=== PATIENT | female | born 1970 | race Caucasian/White ===

== ENCOUNTER 2019-09-21 15:28 | Outpatient (CLI) | payer OTHER, SELFPAY ==
--- NOTE | ~2019-09-21 | XR_ITS ---
EXAMINATION: XR lumbar spine 2-3V DATE: 09/21/2019 16:13 INDICATION: Dorsalgia. Low back pain radiating down the legs. TECHNIQUE: Anteroposterior and lateral views of the lumbar spine, and cone-down lateral view of the l umbosacral junction were obtained. COMPARISON: None. FINDINGS: Alignment is normal. Vertebral body heights are normal. Mild disc height loss at L2-L3, L5-S1 and to lesser degree at L3-L4 and L4-L5. Mild to moderate lower lumbar predominant facet osteoarthritis. Sac ral arches are intact. Bilateral osteitis condense and celiac, left greater than right. Normal bowel gas pattern. IMPRESSION: 1. Mild lumbar spondylosis. Reviewed, dictated and finalized at location A. DENTIAL SUBCONTRACTOR IMPRESSION: 1. Mild lumbar spondylosis.
[2019-09-21 16:47] LABS: Magnesium 1.9 mg/dL (1.6-2.3)
== END 2019-09-21 15:29 | disposition home or self-care (01) ==
PROVIDERS: PCP Family Medicine; Visit Provider Nurse Practitioner Family
DX: M79.18 Myalgia, other site (principal); M47.896 Other spondylosis, lumbar region
CPT/HCPCS: 36415; 72100; 82607; 83735

== ENCOUNTER 2021-04-16 08:55 | Emergency (ER) | payer OTHER, SELFPAY ==
[2021-04-16 08:55] VITALS: BP 129/47; PULSE 71; RESP 14; TEMP 36.2; O2SAT 98
--- NOTE | 2021-04-16 09:09 | ED.GENADULT ---
HPI - General Adult General Chief complaint: Back Pain/Injury Stated complaint: back pain Time Seen by Provider: 04/16/21 09:05 History of Present Illness HPI narrative: Patient is a pleasant 50-year-old female who comes into the ED today complaining of low back pain. Patient reports that she went to an camping over the weekend and slept on an air mattress and she believes this is what aggravated her low back pain because she first noticed the pain Wednesday when she woke up. Since then the pain has gotten progressively worse and is constant. It is worse with any movements of her trunk. She cannot find a comfortable position. She does admit to radiating pain but notes this has been present for a little over a month now. She is having sharp and tingling type pain in the anterior and lateral aspects of both thighs, left greater than right. She saw her primary care doctor for this and was diagnosed with neuropathy and says that her PCP thought it was probably coming from her back. No imaging has been done on her back yet. She has been prescribed gabapentin for this neuropathic type pain. She denies any bowel or bladder symptoms. No saddle paresthesia. No fevers. No nausea, vomiting, abdominal pain or any other symptoms or concerns. No previous history of similar pain. She is also been taking Vale and Tylenol with minimal relief. Related Data Allergies Allergy/AdvReac Type Severity Reaction Status Date / Time codeine Allergy Unknown Unknown Verified 04/02/21 15:22 Review of Systems Constitutional: Constitutional: Reports as per HPI, Denies fever(s), Denies night sweats and Denies weakness Cardiovascular: Cardiovascular: Denies chest pain, Denies edema, Denies leg edema, Denies dyspnea and Denies orthopnea Respiratory: Respiratory: Denies cough and Denies dyspnea Gastrointestinal: Gastrointestinal: Denies abdominal pain, Denies constipation, Denies diarrhea, Denies nausea and Denies vomiting Musculoskeletal: Musculoskeletal: Denies abnormal gait, Reports back pain, Denies numbness and Denies tingling Comments: See HPI for back pain. Neurologic: Denies Abnormal speech present, Denies abnormal gait, Denies numbness, Denies tingling and Denies weakness Psychiatric: Psychiatric: Denies homicidal ideation and Denies suicidal ideation FOR[facility]LY [facility], [facility] Past Medical History Medical History (Updated 04/02/21 @ 16:18 by Odilon Morales NP) BMI 34.0-34.9,adult Body mass index (BMI) of 35.0 to 35.9 in adult Family History Family History Father Hypertension Malignant neoplasm of prostate Mother Hypertension Family history of osteoarthritis Sibling COVID-19 Social History Social History (Updated 04/02/21 @ 15:35 by Brenda Campa [facility]) Smoking status: Former smoker Tobacco type: cigarettes Second hand tobacco smoke exposure: Yes Alcohol intake: current Substance use: never Substance use type: does not use Additional occupation/education comments: [employer] Gender identity (if verbalized by the patient): Female Exam Const: General: cooperative, healthy appearing, no acute distress, well developed, alert, awake and Physically active; No comfortable Orientation/consciousness: patient oriented x3 Other: Pleasant, uncomfortable appearing HENMT: Head: normal to inspection, normocephalic and atraumatic Ears: external ears normal General nose exam: Normal external nose present Eyes: Pupils: Equal, round and reactive pupils present EOM: EOMs intact bilaterally Neck: Neck: normal visual inspection Chest: Chest palpation & inspection: normal inspection of the chest and no tenderness Resp: Effort & Inspection: normal respiratory effort and able to speak in complete sentences Auscultation: clear to auscultation bilaterally Cardio: Rate: regular rate Rhythm: regular rhythm GI: Inspection: normal to inspection GI Palp: No abdominal
[2021-04-16] MEDS: MORPHINE SULFATE (*CRX) 4 MG/ML INJ IV PUSH (09:52)
[2021-04-16] MEDS: ONDANSETRON INJ 4 MG/2 ML VIAL IV PUSH (09:52)
[2021-04-16] MEDS: methylPREDNISolone SOD SUCC 125 MG VIAL IV PUSH (09:52)
[2021-04-16] MEDS: KETOROLAC 15 MG/ML VIAL (*BKC) IV PUSH (09:52)
[2021-04-16 10:27] VITALS: BP 113/61; PULSE 63; RESP 14; O2SAT 94
[2021-04-16 11:34] VITALS: BP 114/58; PULSE 68; RESP 16; O2SAT 95
== END 2021-04-16 11:36 | disposition home or self-care (01) ==
PROVIDERS: Emergency Provider Emergency Medicine; PCP Family Medicine
DX: S39.012A Strain of muscle, fascia and tendon of lower back, initial encounter (principal); Z87.891 Personal history of nicotine dependence; X58.XXXA Exposure to other specified factors, initial encounter
CPT/HCPCS: 96374; 96375; 99284; J1885; J2270; J2405; J2930

== ENCOUNTER 2021-09-23 16:02 | Outpatient (CLI) | payer OTHER, SELFPAY ==
--- NOTE | ~2021-09-23 | MM_ITS ---
EXAMINATION: MM screening [facility] BI w rob HISTORY: Screening mammogram TECHNIQUE: Craniocaudal and mediolateral oblique 3-D tomosynthesis images were obtained and synthetic 2-D images were generated. CAD analysis was submitted and interpreted. COMPARISON: 02/23/2019, 02/07/2018, 12/03/2016, 11/25/2016 BREAST PARENCHYMAL COMPOSITION: There are scattered areas of fibroglandular density. FINDINGS: There is no evidence of suspicious mass, calcification, or architectural distortion to sugg est malignancy in either breast. There has been no suspicious interval change. IMPRESSION: 1. No mammographic evidence of malignancy. 2. Recommend routine screening mammography in one year. BI-RADS Category 1: Negative Reviewed, dictated and finalized at location A. DISPATCHER
== END 2021-09-23 16:03 | disposition home or self-care (01) ==
LOC: ANHIMG 16:05
PROVIDERS: PCP Family Medicine; Visit Provider Obstetrics & Gynecology
DX: Z12.31 Encounter for screening mammogram for malignant neoplasm of breast (principal)
CPT/HCPCS: 77063; 77067

== ENCOUNTER → 2022-02-26 08:49 | Outpatient (CLI) | payer OTHER, SELFPAY ==
--- NOTE | ~2022-02-26 | XR_ITS ---
XR ankle LT min 3V DATE: 02/26/2022 09:04 INDICATION: Left ankle and foot pain TECHNIQUE: 4 views COMPARISON: None FINDINGS: Mild plantar calcaneal enthesopathy. Slight posterior calcaneal enthesopathy. No fracture or mortise. No periosteal reaction or bone. IMPRESSION: Calcaneal enthesopathy Reviewed, dictated and finalized at location A. IMPRESSION: Calcaneal enthesopathy
== END ==
PROVIDERS: PCP Family Medicine; Visit Provider Nurse Practitioner Family
DX: M25.572 Pain in left ankle and joints of left foot (principal); M77.32 Calcaneal spur, left foot
CPT/HCPCS: 73610

== ENCOUNTER 2023-07-13 15:51 | Outpatient (CLI) | payer OTHER, SELFPAY ==
--- NOTE | ~2023-07-13 | MM_ITS ---
EXAMINATION: MM screening [facility] BI w rob HISTORY: Screening mammogram TECHNIQUE: Craniocaudal and mediolateral oblique 3-D tomosynthesis images were obtained and synthetic 2-D images were generated. CAD analysis was submitted and interpreted. COMPARISON: September 23, 2021, February 23, 2019 bilateral screening mammogram examinations BREAST PARENCHYMAL COMPOSITION: There are scattered areas of fibroglandular density. FINDINGS: Biopsy marker on the right; history of prior benign right breast biopsy. There is focal asymmetry in the outer left breast on CC projection. Diagnostic left mammogram is vicenta mmended, with ultrasound if required. Otherwise no suspicious mass, architectural distortion, malignant calcification, skin thickening or r etraction of either breast is detected. IMPRESSION: 1. Left lateral breast mammographic asymmetry on screening craniocaudal view 2. Diagnostic left mammogram is recommended, with ultrasound if required BI-RADS Category 0: Incomplete: Needs additional imaging evaluation. Reviewed, dictated and finalized at location A. WIRER
== END 2023-07-13 15:52 | disposition home or self-care (01) ==
PROVIDERS: PCP Family Medicine; Visit Provider Obstetrics & Gynecology
DX: Z12.31 Encounter for screening mammogram for malignant neoplasm of breast (principal); R92.8 Other abnormal and inconclusive findings on diagnostic imaging of breast
CPT/HCPCS: 77063; 77067

== ENCOUNTER 2023-07-30 12:08 | Outpatient (CLI) | payer OTHER, SELFPAY ==
--- NOTE | ~2023-07-30 | MMUS_ITS ---
EXAMINATION: MM diagnostic [facility] LT w rob, US breast LT limited HISTORY: Follow-up left breast asymmetry TECHNIQUE: Additional 3-D tomosynthesis images of the left breast were performed and synthetic 2-D im ages were generated. CAD analysis was submitted and interpreted. High resolution Limited left breast ultrasound was performed. COMPARISON: Comparison to multiple prior studies sequentially, with oldest reviewed study dated 11/25. BREAST PARENCHYMAL COMPOSITION: Breast composed of scattered areas of fibroglandular density FINDINGS: MAMMOGRAPHIC FINDINGS: The left breast is stable. No new masses, calcifications or architectural distortion in the left eva st to suggest malignancy. ULTRASOUND: Limited left breast ultrasound: Normal heterogeneous echotexture without solid or cystic mass. IMPRESSION: 1. No evidence for malignancy in the left breast. 2. Routine yearly screening mammogram and regular clinical breast examination are recommended. BI-RADS Category 1: Negative Reviewed, dictated and finalized at location A. ING ROOM ATTENDANT IMPRESSION: 1. No evidence for malignancy in the left breast. 2. Routine yearly screening mammogram and regular clinical breast examination a re recommended. BI-RADS Category 1: Negative
== END 2023-07-30 12:09 | disposition home or self-care (01) ==
LOC: ANHIMG 12:10
PROVIDERS: PCP Family Medicine; Visit Provider Obstetrics & Gynecology
DX: R92.8 Other abnormal and inconclusive findings on diagnostic imaging of breast (principal)
CPT/HCPCS: 76642; 77061; 77065; G0279

== ENCOUNTER 2024-08-22 07:34 | Outpatient (CLI) | payer OTHER, SELFPAY ==
--- NOTE | ~2024-08-22 | MM_ITS ---
EXAMINATION: MM screening [facility] BI w rob HISTORY: Screening TECHNIQUE: Craniocaudal and mediolateral oblique 3-D tomosynthesis images were obtained and synthetic 2-D images were generated. CAD analysis was submitted and interpreted. COMPARISON: Comparison to multiple prior studies sequentially, with oldest reviewed study dated 12/03. BREAST PARENCHYMAL COMPOSITION: Not dense: There are scattered areas of fibroglandular density. FINDINGS: Right breast asymmetry superiorly are unchanged from prior studies. There is no evidence of suspicious mass, calcification, or architectural distortion to suggest malignancy in either breast. There has been no suspicious interval change. IMPRESSION: 1. No mammographic evidence of malignancy. 2. Recommend routine screening mammography in one year. BI-RADS Category 1: Negative Reviewed, dictated and finalized at location B. MIC SPRAYER
== END 2024-08-22 07:35 | disposition home or self-care (01) ==
LOC: ANHIMG 07:36
PROVIDERS: PCP Family Medicine; Visit Provider Obstetrics & Gynecology
DX: Z12.31 Encounter for screening mammogram for malignant neoplasm of breast (principal)
CPT/HCPCS: 77063; 77067

== ENCOUNTER 2025-02-08 06:56 | Outpatient (CLI) | payer OTHER, SELFPAY ==
--- NOTE | ~2025-02-08 | XR_ITS ---
EXAM/ PROCEDURE: XR lumbar spine 2-3V - 02/08/2025 7:02 CDT HISTORY: 54 years old Female with M54.10 - Radiculopathy, site unspecified COMPARISON: None available TECHNIQUE: Three view(s) FINDINGS/ IMPRESSION: There are no fractures or dislocations.Intervertebral disc spaces are within normal limits. Reviewed, dictated and finalized at location A.
== END 2025-02-08 06:57 | disposition home or self-care (01) ==
LOC: MICIMG 06:57
PROVIDERS: PCP Family Medicine; Visit Provider Nurse Practitioner Adult Health
DX: M54.10 Radiculopathy, site unspecified (principal)
CPT/HCPCS: 72100

== ENCOUNTER 2025-03-20 08:08 | Outpatient (RCR) | payer OTHER, SELFPAY ==
[2025-03-20 08:28] VITALS: BMI 35.2
[2025-03-20 08:57] VITALS: BMI 35.2
--- NOTE | 2025-03-20 10:10 | PCDIET ---
MNT consult completed. See note in [id number]: Follow up scheduled 05/02
--- NOTE | 2025-06-20 09:10 | PCDIET ---
Cady cancelled MNT follow up scheduled in April. Not rescheduled.
== END 2025-06-04 11:43 | disposition home or self-care (01) ==
LOC: ANHDMC 08:08
PROVIDERS: PCP Family Medicine; Visit Provider Nurse Practitioner Adult Health
DX: E66.9 Obesity, unspecified (principal); E78.2 Mixed hyperlipidemia; Z71.3 Dietary counseling and surveillance
CPT/HCPCS: 97802

== ENCOUNTER 2025-05-31 08:45 | Outpatient (CLI) | payer OTHER, SELFPAY ==
--- NOTE | ~2025-05-31 | XR_ITS ---
XR_CERV2-3V_CR Indication: M79.2 - Neuralgia and neuritis, unspecified Comparison: None Findings: The vertebral heights are intact. No fracture or subluxation. Moderate loss of disc at C4-5 C5-6. Soft tissues unremarkable Impression: No acute abnormality. Reviewed, dictated and finalized at location P. Impression: No acute abnormality.
--- NOTE | ~2025-05-31 | XR_ITS ---
XR thoracic spine 2V Indication: M79.2 - Neuralgia and neuritis, unspecified Comparison: None Findings: Mild dextroconvex scoliosis, no fracture or subluxation. Moderate loss of disc height. Soft tissues unremarkable Impression: No acute abnormality. Reviewed, dictated and finalized at location P. Impression: No acute abnormality.
== END 2025-05-31 08:46 | disposition home or self-care (01) ==
LOC: MICIMG 08:47
PROVIDERS: PCP Family Medicine; Visit Provider Nurse Practitioner Adult Health
DX: M79.2 Neuralgia and neuritis, unspecified (principal); M47.812 Spondylosis without myelopathy or radiculopathy, cervical region
CPT/HCPCS: 72040; 72070

== ENCOUNTER 2025-07-12 16:11 | Emergency (ER) | payer OTHER, SELFPAY ==
--- NOTE | ~2025-07-12 | CT_ITS ---
PROCEDURE: [Procedure] INDICATION: RUQ/Epigastric pain COMPARISON(S): None. TECHNIQUE: Multiplanar images of the abdomen and pelvis were obtained with intravenous contrast solution.. Diagnostic sensitivity is limited due to lack of oral contrast. Dose lowering technique and dose optimization was utilized. FINDINGS: Inferior thorax: No significant abnormality is seen. Liver: Cyst in the left lobe Gallbladder: The gallbladder is present. There are no radiopaque gallstones. Pancreas: Within normal limits. Spleen: Normal in size and appearance. Adrenal glands: There are no masses seen. Kidneys: There is no hydronephrosis seen on either side. No urinary tract stones are seen. There are no suspicious masses seen. Small left renal cysts. GI tract: There is no evidence of bowel obstruction. The appendix is not seen as a separate structure. Major vessels: The major vessels are normal in caliber. Sex specific pelvic organs: The uterus is not seen. Bladder: The bladder appers normal. Bones: Within normal limits for the patient's age. IMPRESSION: No acute abnormality is seen. Reviewed, dictated and finalized at location A. [employer]
[2025-07-12 16:12] VITALS: BP 151/63; PULSE 85; RESP 16; TEMP 36.4; O2SAT 99
--- NOTE | 2025-07-12 16:47 | ECG_ITS ---
Test Date: 2025-07-12 17:12:09 Measurements Intervals [place] Rate: 79 P: 46 TX: 222 QRS: 27 QRSD: 91 T: 90 QT: 383 QTc: 441 Interpretive Statements SINUS RHYTHM WITH FIRST DEGREE AV BLOCK NONSPECIFIC T-WAVE ABNORMALITY ABNORMAL ECG No previous ECG available for comparison Electronically Signed On 07-13-2025 13:09:12 PLATFORM MATERIAL HANDLER MANAGER by Dev Villanueva M.D.
--- NOTE | 2025-07-12 17:00 | ED.GENADULT ---
HPI - General Adult General Chief complaint: Abdominal Pain <Vu Connelly MD - Last Filed: 07/12/25 18:05> Stated complaint: abd apin <Vu Connelly MD - Last Filed: 07/12/25 18:05> Time Seen by Provider: 07/12/25 16:19 <Vu Connelly MD - Last Filed: 07/12/25 18:05> History of Present Illness HPI narrative: This is a 55-year-old female presenting with abdominal pain. Patient said that she had a lunch of diet Dr. Iqbal and chocolate pretzels when she developed burning epigastric pain radiating down the right side of her abdomen. Pain is improving but comes and goes in intensity. She denies fevers, nausea vomiting or diarrhea. Last bowel movement was yesterday and was not constipated and not diarrhea. She has never had a history of biliary colic. No history of GERD. <Vu Connelly MD - Last Filed: 07/12/25 18:05> Related Data Allergies/adverse reactions: Allergies Allergy/AdvReac Type Severity Reaction Status Date / Time codeine Allergy Unknown Vomiting Verified 05/31/25 08:16 <Vu Connelly MD - Last Filed: 07/12/25 18:05> [facility] Past Medical History Medical History: Medical History (Updated 07/12/25 @ 19:18 by Kia Jj MD) Cervical spine arthritis with nerve pain Neuralgia Obesity Colon cancer screening Radiculopathy Abnormality of left breast on screening mammogram Screening mammogram, encounter for BMI over 35 BMI 34.0-34.9,adult Body mass index (BMI) of 35.0 to 35.9 in adult Mixed hyperlipidemia <Vu Connelly MD - Last Filed: 07/12/25 18:05> Surgical History Surgical History: Surgical History S/P total abdominal hysterectomy (12/01/07) ANSELMO - leiomyoma History of colposcopy (10/22/20) colpo / BX - squamous atypia Delivery by section (04/09/00) rpt c/s with Tubal ligation History of gynecological procedure (~1997) laparoscopic/removal of adhesion Delivery by section (04/24/97) Primary C/S - nonreassuring heart rate strip, cord around neck x 1, pelvic endometriosis History of cryosurgery (~1992) H/O right breast biopsy (~2016) Benign <Vu Connelly MD - Last Filed: 07/12/25 18:05> Family History Family History: Family History Father Hypertension Malignant neoplasm of prostate Mother Hypertension Family history of osteoarthritis Sibling COVID-19 <Vu Connelly MD - Last Filed: 07/12/25 18:05> Social History Social History: Social History Smoking status: Former smoker Tobacco type: cigarettes Second hand tobacco smoke exposure: No Alcohol intake: current Drinks per week: 3 Substance use: never Substance use type: does not use Lack of Transportation: No Lack of Food: Never True Current Housing: I Have Housing Concerned About Future Housing: No Difficulty Paying Gas/Electric Bills: No Difficulty Paying for Meds: No Currently Unemployed: No Education: High School Diploma/GED Difficulty w/ Childcare or Family Care: No Living arrangements: with family Additional living arrangements comments: Occupation/Education: occupation Additional occupation/education comments: [employer] supervisor Gender identity (if verbalized by the patient): Female Sexual Orientation (if Verbalized by the Patient): Straight or Heterosexual Spiritual care concerns: No <Vu Connelly MD - Last Filed: 07/12/25 18:05> Exam Narrative: APPEARANCE: No apparent distress. Head: atraumatic. EYES: EOMI, NOSE: Atraumatic NECK: Trachea midline RESPIRATORY: No increased rate of breathing CARDIOVASCULAR: RRR, ABDOMINAL: Non-distended tenderness in the epigastric area. Point of care right upper quadrant ultrasound showed a distended gallbladder. Patient is diffusely tender across the epigastric region and gallbladder. MUSCULOSKELETAl: No obvious deformities NEURO: Alert. Moving 4/4 extremities SKIN:: Warm, dry. Normal color PSYCHIATRIC: Normal affect <Vu Connelly MD - Last Filed: 07/12/25 18:05> Course Reevaluation(s) Reevaluation #1: Patient signed out to me pending CT this does not show any acute abnormality per radiologist. I have discussed findings with the patient, she is very well-appearing, no distress, now pain at this time, would like to go home. Discussed with her her elevated lipase and LFTs, and need to follow-up with primary care doctor and general surgeon. Return precautions discussed, dietary changes discussed. <Kia Jj MD - Last Filed: 07/12/25 19:36> Vital Signs Vital signs: Vital Signs Temperature 97.6 F 07/12/25 16:12 Pulse Rate 85 07/12/25 16:12 Respiratory Rate 16 07/12/25 16:12 Blood Pressure 151/63 H 07/12/25 16:12 Pulse Oximetry 99 07/12/25 16:12 Oxygen Delivery Room Air 07/12/25 16:12 Temperature 97.6 F 07/12/25 16:12 Pulse Rate 85 07/12/25 16:12 Respiratory Rate 16 07/12/25 16:12 Blood Pressure 151/63 H 07/12/25 16:12 Pulse Oximetry 99 07/12/25 16:12 Oxygen Delivery Room Air 07/12/25 16:12 <Vu Connelly MD - Last Filed: 07/12/25 18:05> Vital Signs Temperature 97.6 F 07/12/25 16:12 Pulse Rate 85 07/12/25 16:12 Respiratory Rate 16 07/12/25 16:12 Blood Pressure 151/63 H 07/12/25 16:12 Pulse Oximetry 99 07/12/25 16:12 Oxygen Delivery Room Air 07/12/25 16:12 Temperature 97.6 F 07/12/25 16:12 Pulse Rate 85 07/12/25 16:12 Respiratory Rate 16 07/12/25 16:12 Blood Pressure 151/63 H 07/12/25 16:12 Pulse Oximetry 99 07/12/25 16:12 Oxygen Delivery Room Air 07/12/25 16:12 <Kia Jj MD - Last Filed: 07/12/25 19:36> Medical Decision Making MDM Narrative Medical decision making narrative: -Course: 55-year-old female presenting with epigastric burning pain. On exam she is tender across the upper abdomen including right upper quadrant. Point care of quadrant ultrasound showed distended gallbladder although tenderness is equal over the gallbladder and epigastric region. Patient given symptomatic treatment. Laboratory studies and a CT abdomen pelvis have been ordered. Patient signed of C3 physician in 8 CT imaging and reassessment. -DDX includes but is not limited to: Gastritis/peptic ulcer disease, pancreatitis, biliary disease <Vu Connelly MD - Last Filed: 07/12/25 18:05> Vital Signs Vital Signs: Vital Signs Temperature 97.6 F 07/12/25 16:12 Pulse Rate 85 07/12/25 16:12 Respiratory Rate 16 07/12/25 16:12 Blood Pressure 151/63 H 07/12/25 16:12 Pulse Oximetry 99 07/12/25 16:12 Oxygen Delivery Room Air 07/12/25 16:12 Temperature 97.6 F 07/12/25 16:12 Pulse Rate 85 07/12/25 16:12 Respiratory Rate 16 07/12/25 16:12 Blood Pressure 151/63 H 07/12/25 16:12 Pulse Oximetry 99 07/12/25 16:12 Oxygen Delivery Room Air 07/12/25 16:12 <Vu Connelly MD - Last Filed: 07/12/25 18:05> Vital Signs Temperature 97.6 F 07/12/25 16:12 Pulse Rate 85 07/12/25 16:12 Respiratory Rate 16 07/12/25 16:12 Blood Pressure 151/63 H 07/12/25 16:12 Pulse Oximetry 99 07/12/25 16:12 Oxygen Delivery Room Air 07/12/25 16:12 Temperature 97.6 F 07/12/25 16:12 Pulse Rate 85 07/12/25 16:12 Respiratory Rate 16 07/12/25 16:12 Blood Pressure 151/63 H 07/12/25 16:12 Pulse Oximetry 99 07/12/25 16:12 Oxygen Delivery Room Air 07/12/25 16:12 <Kia Jj MD - Last Filed: 07/12/25 19:36> Lab Data Result diagrams: 07/12/25 16:58 07/12/25 16:58 <Vu Connelly MD - Last Filed: 07/12/25 18:05> Labs: Lab Results 07/12/25 07/12/25 07/12/25 Range/Units 16:58 16:58 16:58 WBC 10.6 H (4.5-10.0) K/mm3 RBC 4.36 (4.2-5.4) M/mm3 Hgb 13.6 (12.0-15.0) g/dL Hct 41.0 (37.0-47.0) % MCV 94.0 (80-100) fl MCH 31.2 (26-34) pg MCHC 33.2 (32-36) g/dl RDW 13.6 (11.5-14.5) % Plt Count 292 (150-375) k/mm3 MPV 9.5 (7.4-10.4) fl Immature Gran % (Auto) 0.5 (0-0.5) % Neut % (Auto) 70.1 (45.5-73.1) % Lymph % (Auto) 18.8 (18.3-44.2) % [place] % (Auto) 5.7 (2.6-8.5) % Eos % (Auto) 4.2 (0-4.4) % Baso % (Auto) 0.7 (0.2-1.2) % Lymph # (Auto) 2.00 (0.9-3.2) K/mm3 [place] # (Auto) 0.6 (0.1-0.6) K/mm3 Eos # (Auto) 0.5 H (0-0.3) K/mm3 Baso # (Auto) 0.1 (0.0-0.1) K/mm3 Abs Immat Gran (auto) 0.05 H (0.00-0.031) K/mm3 Absolute Neuts (auto) 7.4 H (1.3-6.7) K/mm3 Absolute Nucleated RBC 0.000 (0.0-0.012) K/mm3 Nucleated RBC % 0.0 (0.0-0.2) % Sodium Cancelled 138 Potassium Cancelled 3.9 Chloride Cancelled Carbon Dioxide Anion Gap BUN Creatinine Estim Creat Clear Calc Estimated GFR Glucose Calcium Total Bilirubin AST ALT Alkaline Phosphatase Troponin I (0.000-0.034) ng/mL Total Protein Albumin Lipase 07/12/25 07/12/25 07/12/25 Range/Units 16:58 16:58 16:58 WBC (4.5-10.0) K/mm3 RBC (4.2-5.4) M/mm3 Hgb (12.0-15.0) g/dL Hct (37.0-47.0) % MCV (80-100) fl MCH (26-34) pg MCHC (32-36) g/dl RDW (11.5-14.5) % Plt Count (150-375) k/mm3 MPV (7.4-10.4) fl Immature Gran % (Auto) (0-0.5) % Neut % (Auto) (45.5-73.1) % Lymph % (Auto) (18.3-44.2) % [place] % (Auto) (2.6-8.5) % Eos % (Auto) (0-4.4) % Baso % (Auto) (0.2-1.2) % Lymph # (Auto) (0.9-3.2) K/mm3 [place] # (Auto) (0.1-0.6) K/mm3 Eos # (Auto) (0-0.3) K/mm3 Baso # (Auto) (0.0-0.1) K/mm3 Abs Immat Gran (auto) (0.00-0.031) K/mm3 Absolute Neuts (auto) (1.3-6.7) K/mm3 Absolute Nucleated RBC (0.0-0.012) K/mm3 Nucleated RBC % (0.0-0.2) % Sodium Potassium Chloride 106 Carbon Dioxide Cancelled 27 Anion Gap Cancelled 5 BUN Cancelled Creatinine Estim Creat Clear Calc Estimated GFR Glucose Calcium Total Bilirubin AST ALT Alkaline Phosphatase Troponin I (0.000-0.034) ng/mL Total Protein Albumin Lipase 07/12/25 07/12/25 07/12/25 Range/Units 16:58 16:58 16:58 WBC (4.5-10.0) K/mm3 RBC (4.2-5.4) M/mm3 Hgb (12.0-15.0) g/dL Hct (37.0-47.0) % MCV (80-100) fl MCH (26-34) pg MCHC (32-36) g/dl RDW (11.5-14.5) % Plt Count (150-375) k/mm3 MPV (7.4-10.4) fl Immature Gran % (Auto) (0-0.5) % Neut % (Auto) (45.5-73.1) % Lymph % (Auto) (18.3-44.2) % [place] % (Auto) (2.6-8.5) % Eos % (Auto) (0-4.4) % Baso % (Auto) (0.2-1.2) % Lymph # (Auto) (0.9-3.2) K/mm3 [place] # (Auto) (0.1-0.6) K/mm3 Eos # (Auto) (0-0.3) K/mm3 Baso # (Auto) (0.0-0.1) K/mm3 Abs Immat Gran (auto) (0.00-0.031) K/mm3 Absolute Neuts (auto) (1.3-6.7) K/mm3 Absolute Nucleated RBC (0.0-0.012) K/mm3 Nucleated RBC % (0.0-0.2) % Sodium Potassium Chloride Carbon Dioxide Anion Gap BUN 20 H Creatinine Cancelled 0.67 L Estim Creat Clear Calc Cancelled 89 Estimated GFR Cancelled Glucose Calcium Total Bilirubin AST ALT Alkaline Phosphatase Troponin I (0.000-0.034) ng/mL Total Protein Albumin Lipase 07/12/25 07/12/25 07/12/25 Range/Units 16:58 16:58 16:58 WBC (4.5-10.0) K/mm3 RBC (4.2-5.4) M/mm3 Hgb (12.0-15.0) g/dL Hct (37.0-47.0) % MCV (80-100) fl MCH (26-34) pg MCHC (32-36) g/dl RDW (11.5-14.5) % Plt Count (150-375) k/mm3 MPV (7.4-10.4) fl Immature Gran % (Auto) (0-0.5) % Neut % (Auto) (45.5-73.1) % Lymph % (Auto) (18.3-44.2) % [place] % (Auto) (2.6-8.5) % Eos % (Auto) (0-4.4) % Baso % (Auto) (0.2-1.2) % Lymph # (Auto) (0.9-3.2) K/mm3 [place] # (Auto) (0.1-0.6) K/mm3 Eos # (Auto) (0-0.3) K/mm3 Baso # (Auto) (0.0-0.1) K/mm3 Abs Immat Gran (auto) (0.00-0.031) K/mm3 Absolute Neuts (auto) (1.3-6.7) K/mm3 Absolute Nucleated RBC (0.0-0.012) K/mm3 Nucleated RBC % (0.0-0.2) % Sodium Potassium Chloride Carbon Dioxide Anion Gap BUN Creatinine Estim Creat Clear Calc Estimated GFR > 60 Glucose Cancelled 97 Calcium Cancelled 9.4 Total Bilirubin Cancelled AST ALT Alkaline Phosphatase Troponin I (0.000-0.034) ng/mL Total Protein Albumin Lipase 07/12/25 07/12/25 07/12/25 Range/Units 16:58 16:58 16:58 WBC (4.5-10.0) K/mm3 RBC (4.2-5.4) M/mm3 Hgb (12.0-15.0) g/dL Hct (37.0-47.0) % MCV (80-100) fl MCH (26-34) pg MCHC (32-36) g/dl RDW (11.5-14.5) % Plt Count (150-375) k/mm3 MPV (7.4-10.4) fl Immature Gran % (Auto) (0-0.5) % Neut % (Auto) (45.5-73.1) % Lymph % (Auto) (18.3-44.2) % [place] % (Auto) (2.6-8.5) % Eos % (Auto) (0-4.4) % Baso % (Auto) (0.2-1.2) % Lymph # (Auto) (0.9-3.2) K/mm3 [place] # (Auto) (0.1-0.6) K/mm3 Eos # (Auto) (0-0.3) K/mm3 Baso # (Auto) (0.0-0.1) K/mm3 Abs Immat Gran (auto) (0.00-0.031) K/mm3 Absolute Neuts (auto) (1.3-6.7) K/mm3 Absolute Nucleated RBC (0.0-0.012) K/mm3 Nucleated RBC % (0.0-0.2) % Sodium Potassium Chloride Carbon Dioxide Anion Gap BUN Creatinine Estim Creat Clear Calc Estimated GFR Glucose Calcium Total Bilirubin 0.7 AST Cancelled 118 H ALT Cancelled 58 H Alkaline Phosphatase Cancelled Troponin I (0.000-0.034) ng/mL Total Protein Albumin Lipase 07/12/25 07/12/25 07/12/25 Range/Units 16:58 16:58 16:58 WBC (4.5-10.0) K/mm3 RBC (4.2-5.4) M/mm3 Hgb (12.0-15.0) g/dL Hct (37.0-47.0) % MCV (80-100) fl MCH (26-34) pg MCHC (32-36) g/dl RDW (11.5-14.5) % Plt Count (150-375) k/mm3 MPV (7.4-10.4) fl Immature Gran % (Auto) (0-0.5) % Neut % (Auto) (45.5-73.1) % Lymph % (Auto) (18.3-44.2) % [place] % (Auto) (2.6-8.5) % Eos % (Auto) (0-4.4) % Baso % (Auto) (0.2-1.2) % Lymph # (Auto) (0.9-3.2) K/mm3 [place] # (Auto) (0.1-0.6) K/mm3 Eos # (Auto) (0-0.3) K/mm3 Baso # (Auto) (0.0-0.1) K/mm3 Abs Immat Gran (auto) (0.00-0.031) K/mm3 Absolute Neuts (auto) (1.3-6.7) K/mm3 Absolute Nucleated RBC (0.0-0.012) K/mm3 Nucleated RBC % (0.0-0.2) % Sodium Potassium Chloride Carbon Dioxide Anion Gap BUN Creatinine Estim Creat Clear Calc Estimated GFR Glucose Calcium Total Bilirubin AST ALT Alkaline Phosphatase 131 H Troponin I < 0.012 (0.000-0.034) ng/mL Total Protein Cancelled 7.5 Albumin Cancelled 4.2 Lipase Cancelled 07/12/25 Range/Units 16:58 WBC (4.5-10.0) K/mm3 RBC (4.2-5.4) M/mm3 Hgb (12.0-15.0) g/dL Hct (37.0-47.0) % MCV (80-100) fl MCH (26-34) pg MCHC (32-36) g/dl RDW (11.5-14.5) % Plt Count (150-375) k/mm3 MPV (7.4-10.4) fl Immature Gran % (Auto) (0-0.5) % Neut % (Auto) (45.5-73.1) % Lymph % (Auto) (18.3-44.2) % [place] % (Auto) (2.6-8.5) % Eos % (Auto) (0-4.4) % Baso % (Auto) (0.2-1.2) % Lymph # (Auto) (0.9-3.2) K/mm3 [place] # (Auto) (0.1-0.6) K/mm3 Eos # (Auto) (0-0.3) K/mm3 Baso # (Auto) (0.0-0.1) K/mm3 Abs Immat Gran (auto) (0.00-0.031) K/mm3 Absolute Neuts (auto) (1.3-6.7) K/mm3 Absolute Nucleated RBC (0.0-0.012) K/mm3 Nucleated RBC % (0.0-0.2) % Sodium Potassium Chloride Carbon Dioxide Anion Gap BUN Creatinine Estim Creat Clear Calc Estimated GFR Glucose Calcium Total Bilirubin AST ALT Alkaline Phosphatase Troponin I (0.000-0.034) ng/mL Total Protein Albumin Lipase 1144 H <Vu Connelly MD - Last Filed: 07/12/25 18:05> Lab Results 07/12/25 07/12/25 07/12/25 Range/Units 16:58 16:58 16:58 WBC 10.6 H (4.5-10.0) K/mm3 RBC 4.36 (4.2-5.4) M/mm3 Hgb 13.6 (12.0-15.0) g/dL Hct 41.0 (37.0-47.0) % MCV 94.0 (80-100) fl MCH 31.2 (26-34) pg MCHC 33.2 (32-36) g/dl RDW 13.6 (11.5-14.5) % Plt Count 292 (150-375) k/mm3 MPV 9.5 (7.4-10.4) fl Immature Gran % (Auto) 0.5 (0-0.5) % Neut % (Auto) 70.1 (45.5-73.1) % Lymph % (Auto) 18.8 (18.3-44.2) % [place] % (Auto) 5.7 (2.6-8.5) % Eos % (Auto) 4.2 (0-4.4) % Baso % (Auto) 0.7 (0.2-1.2) % Lymph # (Auto) 2.00 (0.9-3.2) K/mm3 [place] # (Auto) 0.6 (0.1-0.6) K/mm3 Eos # (Auto) 0.5 H (0-0.3) K/mm3 Baso # (Auto) 0.1 (0.0-0.1) K/mm3 Abs Immat Gran (auto) 0.05 H (0.00-0.031) K/mm3 Absolute Neuts (auto) 7.4 H (1.3-6.7) K/mm3 Absolute Nucleated RBC 0.000 (0.0-0.012) K/mm3 Nucleated RBC % 0.0 (0.0-0.2) % Sodium Cancelled 138 Potassium Cancelled 3.9 Chloride Cancelled Carbon Dioxide Anion Gap BUN Creatinine Estim Creat Clear Calc Estimated GFR Glucose Calcium Total Bilirubin AST ALT Alkaline Phosphatase Troponin I (0.000-0.034) ng/mL Total Protein Albumin Lipase 07/12/25 07/12/25 07/12/25 Range/Units 16:58 16:58 16:58 WBC (4.5-10.0) K/mm3 RBC (4.2-5.4) M/mm3 Hgb (12.0-15.0) g/dL Hct (37.0-47.0) % MCV (80-100) fl MCH (26-34) pg MCHC (32-36) g/dl RDW (11.5-14.5) % Plt Count (150-375) k/mm3 MPV (7.4-10.4) fl Immature Gran % (Auto) (0-0.5) % Neut % (Auto) (45.5-73.1) % Lymph % (Auto) (18.3-44.2) % [place] % (Auto) (2.6-8.5) % Eos % (Auto) (0-4.4) % Baso % (Auto) (0.2-1.2) % Lymph # (Auto) (0.9-3.2) K/mm3 [place] # (Auto) (0.1-0.6) K/mm3 Eos # (Auto) (0-0.3) K/mm3 Baso # (Auto) (0.0-0.1) K/mm3 Abs Immat Gran (auto) (0.00-0.031) K/mm3 Absolute Neuts (auto) (1.3-6.7) K/mm3 Absolute Nucleated RBC (0.0-0.012) K/mm3 Nucleated RBC % (0.0-0.2) % Sodium Potassium Chloride 106 Carbon Dioxide Cancelled 27 Anion Gap Cancelled 5 BUN Cancelled Creatinine Estim Creat Clear Calc Estimated GFR Glucose Calcium Total Bilirubin AST ALT Alkaline Phosphatase Troponin I (0.000-0.034) ng/mL Total Protein Albumin Lipase 07/12/25 07/12/25 07/12/25 Range/Units 16:58 16:58 16:58 WBC (4.5-10.0) K/mm3 RBC (4.2-5.4) M/mm3 Hgb (12.0-15.0) g/dL Hct (37.0-47.0) % MCV (80-100) fl MCH (26-34) pg MCHC (32-36) g/dl RDW (11.5-14.5) % Plt Count (150-375) k/mm3 MPV (7.4-10.4) fl Immature Gran % (Auto) (0-0.5) % Neut % (Auto) (45.5-73.1) % Lymph % (Auto) (18.3-44.2) % [place] % (Auto) (2.6-8.5) % Eos % (Auto) (0-4.4) % Baso % (Auto) (0.2-1.2) % Lymph # (Auto) (0.9-3.2) K/mm3 [place] # (Auto) (0.1-0.6) K/mm3 Eos # (Auto) (0-0.3) K/mm3 Baso # (Auto) (0.0-0.1) K/mm3 Abs Immat Gran (auto) (0.00-0.031) K/mm3 Absolute Neuts (auto) (1.3-6.7) K/mm3 Absolute Nucleated RBC (0.0-0.012) K/mm3 Nucleated RBC % (0.0-0.2) % Sodium Potassium Chloride Carbon Dioxide Anion Gap BUN 20 H Creatinine Cancelled 0.67 L Estim Creat Clear Calc Cancelled 89 Estimated GFR Cancelled Glucose Calcium Total Bilirubin AST ALT Alkaline Phosphatase Troponin I (0.000-0.034) ng/mL Total Protein Albumin Lipase 07/12/25 07/12/25 07/12/25 Range/Units 16:58 16:58 16:58 WBC (4.5-10.0) K/mm3 RBC (4.2-5.4) M/mm3 Hgb (12.0-15.0) g/dL Hct (37.0-47.0) % MCV (80-100) fl MCH (26-34) pg MCHC (32-36) g/dl RDW (11.5-14.5) % Plt Count (150-375) k/mm3 MPV (7.4-10.4) fl Immature Gran % (Auto) (0-0.5) % Neut % (Auto) (45.5-73.1) % Lymph % (Auto) (18.3-44.2) % [place] % (Auto) (2.6-8.5) % Eos % (Auto) (0-4.4) % Baso % (Auto) (0.2-1.2) % Lymph # (Auto) (0.9-3.2) K/mm3 [place] # (Auto) (0.1-0.6) K/mm3 Eos # (Auto) (0-0.3) K/mm3 Baso # (Auto) (0.0-0.1) K/mm3 Abs Immat Gran (auto) (0.00-0.031) K/mm3 Absolute Neuts (auto) (1.3-6.7) K/mm3 Absolute Nucleated RBC (0.0-0.012) K/mm3 Nucleated RBC % (0.0-0.2) % Sodium Potassium Chloride Carbon Dioxide Anion Gap BUN Creatinine Estim Creat Clear Calc Estimated GFR > 60 Glucose Cancelled 97 Calcium Cancelled 9.4 Total Bilirubin Cancelled AST ALT Alkaline Phosphatase Troponin I (0.000-0.034) ng/mL Total Protein Albumin Lipase 07/12/25 07/12/25 07/12/25 Range/Units 16:58 16:58 16:58 WBC (4.5-10.0) K/mm3 RBC (4.2-5.4) M/mm3 Hgb (12.0-15.0) g/dL Hct (37.0-47.0) % MCV (80-100) fl MCH (26-34) pg MCHC (32-36) g/dl RDW (11.5-14.5) % Plt Count (150-375) k/mm3 MPV (7.4-10.4) fl Immature Gran % (Auto) (0-0.5) % Neut % (Auto) (45.5-73.1) % Lymph % (Auto) (18.3-44.2) % [place] % (Auto) (2.6-8.5) % Eos % (Auto) (0-4.4) % Baso % (Auto) (0.2-1.2) % Lymph # (Auto) (0.9-3.2) K/mm3 [place] # (Auto) (0.1-0.6) K/mm3 Eos # (Auto) (0-0.3) K/mm3 Baso # (Auto) (0.0-0.1) K/mm3 Abs Immat Gran (auto) (0.00-0.031) K/mm3 Absolute Neuts (auto) (1.3-6.7) K/mm3 Absolute Nucleated RBC (0.0-0.012) K/mm3 Nucleated RBC % (0.0-0.2) % Sodium Potassium Chloride Carbon Dioxide Anion Gap BUN Creatinine Estim Creat Clear Calc Estimated GFR Glucose Calcium Total Bilirubin 0.7 AST Cancelled 118 H ALT Cancelled 58 H Alkaline Phosphatase Cancelled Troponin I (0.000-0.034) ng/mL Total Protein Albumin Lipase 07/12/25 07/12/25 07/12/25 Range/Units 16:58 16:58 16:58 WBC (4.5-10.0) K/mm3 RBC (4.2-5.4) M/mm3 Hgb (12.0-15.0) g/dL Hct (37.0-47.0) % MCV (80-100) fl MCH (26-34) pg MCHC (32-36) g/dl RDW (11.5-14.5) % Plt Count (150-375) k/mm3 MPV (7.4-10.4) fl Immature Gran % (Auto) (0-0.5) % Neut % (Auto) (45.5-73.1) % Lymph % (Auto) (18.3-44.2) % [place] % (Auto) (2.6-8.5) % Eos % (Auto) (0-4.4) % Baso % (Auto) (0.2-1.2) % Lymph # (Auto) (0.9-3.2) K/mm3 [place] # (Auto) (0.1-0.6) K/mm3 Eos # (Auto) (0-0.3) K/mm3 Baso # (Auto) (0.0-0.1) K/mm3 Abs Immat Gran (auto) (0.00-0.031) K/mm3 Absolute Neuts (auto) (1.3-6.7) K/mm3 Absolute Nucleated RBC (0.0-0.012) K/mm3 Nucleated RBC % (0.0-0.2) % Sodium Potassium Chloride Carbon Dioxide Anion Gap BUN Creatinine Estim Creat Clear Calc Estimated GFR Glucose Calcium Total Bilirubin AST ALT Alkaline Phosphatase 131 H Troponin I < 0.012 (0.000-0.034) ng/mL Total Protein Cancelled 7.5 Albumin Cancelled 4.2 Lipase Cancelled 07/12/25 Range/Units 16:58 WBC (4.5-10.0) K/mm3 RBC (4.2-5.4) M/mm3 Hgb (12.0-15.0) g/dL Hct (37.0-47.0) % MCV (80-100) fl MCH (26-34) pg MCHC (32-36) g/dl RDW (11.5-14.5) % Plt Count (150-375) k/mm3 MPV (7.4-10.4) fl Immature Gran % (Auto) (0-0.5) % Neut % (Auto) (45.5-73.1) % Lymph % (Auto) (18.3-44.2) % [place] % (Auto) (2.6-8.5) % Eos % (Auto) (0-4.4) % Baso % (Auto) (0.2-1.2) % Lymph # (Auto) (0.9-3.2) K/mm3 [place] # (Auto) (0.1-0.6) K/mm3 Eos # (Auto) (0-0.3) K/mm3 Baso # (Auto) (0.0-0.1) K/mm3 Abs Immat Gran (auto) (0.00-0.031) K/mm3 Absolute Neuts (auto) (1.3-6.7) K/mm3 Absolute Nucleated RBC (0.0-0.012) K/mm3 Nucleated RBC % (0.0-0.2) % Sodium Potassium Chloride Carbon Dioxide Anion Gap BUN Creatinine Estim Creat Clear Calc Estimated GFR Glucose Calcium Total Bilirubin AST ALT Alkaline Phosphatase Troponin I (0.000-0.034) ng/mL Total Protein Albumin Lipase 1144 H <Kia Jj MD - Last Filed: 07/12/25 19:36> Discharge Plan Discharge Clinical Impression: Abdominal pain, Elevated lipase <Vu Connelly MD - Last Filed: 07/12/25 18:05> Patient Disposition: Home <Vu Connelly MD - Last Filed: 07/12/25 18:05> Condition: Stable <Vu Connelly MD - Last Filed: 07/12/25 18:05> Instructions: Antibiotic Form, Abdominal Pain (ED) <Vu Connelly MD - Last Filed: 07/12/25 18:05> Additional Instructions: Please follow-up with the general surgeon listed below for further management. <Vu Connelly MD - Last Filed: 07/12/25 18:05> Patient Language: Slovenian <Vu Connelly MD - Last Filed: 07/12/25 18:05> Prescriptions: New famotidine 20 mg tablet 20 mg PO DAILY Qty: 30 0RF acetaminophen [Tylenol Extra Strength] 500 mg tablet 1,000 mg PO Q6H PRN (Reason: pain) Qty: 50 0RF ondansetron 4 mg tablet,disintegrating 4 mg PO Q8H PRN (Reason: nausea and vomiting) Qty: 10 0RF oxycodone 5 mg capsule 5 mg PO Q6H PRN (Reason: pain) Qty: 14 0RF No Action estradiol 2 mg tablet 2 mg PO DAILY Qty: 90 3RF sertraline 100 mg tablet 100 mg PO DAILY Qty: 90 3RF prednisone 10 mg tablet 10 mg PO DIRECTED Qty: 15 0RF Rx Instructions: DO NOT TAKE AT NIGHT OR EVEVNING, TAKE 3 tablets every morning for 5 days. cyclobenzaprine 5 mg tablet 5 mg PO TID PRN (Reason: muscle spasm) Qty: 30 1RF Contrave 8-90 mg tablet extended release 1 tablet PO DAILY Qty: 120 0RF Rx Instructions: Week1: one tablet daily, Week2: 1 tab BID, Week3: 1 tab in a.m and 2 in p.m, Then take 2 tabs BID <Vu Connelly MD - Last Filed: 07/12/25 18:05> Follow-up/Referrals: Altagracia Noe MD [Physician, General Surgery] - 3 Days Mukesh Dooley MD [Primary Care Provider, Family Practice] <Vu Connelly MD - Last Filed: 07/12/25 18:05>
[2025-07-12] MEDS: HYDROmorphone HCL INJ (*CRX) 1 MG/ML SYR 0.5 MG IV PUSH (17:03)
[2025-07-12] MEDS: FAMOTIDINE 20 MG/2 ML VIAL IV PUSH (17:03)
[2025-07-12 17:04] LABS: Hematocrit 41.0 % (37.0-47.0); Hemoglobin 13.6 g/dL (12.0-15.0); Immature Granulocyte Percent A 0.5 % (0-0.5); Lymphocytes Absolute Auto 2.00 K/mm3 (0.9-3.2); Mean Corpuscular HGB Conc 33.2 g/dl (32-36); Mean Corpuscular Hemoglobin 31.2 pg (26-34); Mean Corpuscular Volume 94.0 fl (80-100); Nucleated Red Blood Cells Absolute Auto 0.000 K/mm3 (0.0-0.012); Nucleated Red Blood Cells Perc 0.0 % (0.0-0.2); Platelet Count Result 292 k/mm3 (150-375); Red Blood Count 4.36 M/mm3 (4.2-5.4); White Blood Count 10.6 K/mm3 (4.5-10.0)
[2025-07-12] MEDS: ONDANSETRON INJ 4 MG/2 ML VIAL IV PUSH (17:04)
[2025-07-12] MEDS: SODIUM CHLORIDE 0.9% IV 1,000 ML 999 ML IV CONT (17:04)
[2025-07-12] MEDS: MAG HYDROX/AL HYDROX/SIMETH 30 ML UDC PO (17:04)
[2025-07-12 17:15] LABS: Alanine Aminotransferase 58 U/L (6-35); Albumin Level 4.2 g/dL (3.5-5.1); Alkaline Phosphatase 131 U/L (38-126); Anion Gap 5 mmol/L (4-12); Aspartate Amino Transferase 118 U/L (14-36); Bilirubin,Total 0.7 mg/dL (0.2-1.3); Blood Urea Nitrogen 20 mg/dL (7-17); Calcium 9.4 mg/dL (8.4-10.2); Carbon Dioxide 27 mmol/L (22-30); Chloride 106 mmol/L (98-107); Estimated CRCL calculation 89 ml/min; Estimated Glomerular Filt Rate > 60; Glucose 97 mg/dL (65-110); Lipase 1144 U/L (23-300); Potassium 3.9 mmol/L (3.4-5.0); Sodium 138 mmol/L (137-145); Total Protein 7.5 g/dL (6.3-8.2)
[2025-07-12 17:26] LABS: Troponin I < 0.012 ng/mL (0.000-0.034)
== END 2025-07-12 19:49 | disposition home or self-care (01) ==
PROVIDERS: Emergency Medicine; Emergency Provider Emergency Medicine; PCP Family Medicine
DX: R10.13 Epigastric pain (principal); R74.8 Abnormal levels of other serum enzymes; E78.2 Mixed hyperlipidemia; E66.9 Obesity, unspecified; Z68.33 Body mass index [BMI] 33.0-33.9, adult; M47.812 Spondylosis without myelopathy or radiculopathy, cervical region; Z87.891 Personal history of nicotine dependence; Z90.710 Acquired absence of both cervix and uterus; Z79.890 Hormone replacement therapy; I44.0 Atrioventricular block, first degree; R94.31 Abnormal electrocardiogram [ECG] [EKG]
CPT/HCPCS: 36415; 74177; 80053; 83690; 84484; 85025; 93005; 96361; 96374; 96375; 99284; A9270; J1171; J2405; J7030; Q9967

== ENCOUNTER 2025-07-24 20:12 | Inpatient (IN) | payer OTHER, SELFPAY ==
--- NOTE | ~2025-07-24 | CT_ITS ---
EXAMINATION: CT abdomen pelvis w con DATE: 07/24/2025 21:41 INDICATION: Abdominal pain. TECHNIQUE: Computed tomography (CT) of the abdomen and pelvis was performed without intravenous contrast. Automated exposure control and iterative reconstruction technique were employed. The dose-length product was 647.50 mGy-cm. COMPARISON: CT dated 07/12/2025 FINDINGS: Lung bases do not show acute findings. Mildly hepatomegaly. Normal size spleen. The gallbladder is distended in size measuring the length of 10 cm and a width of 4 cm. Mild edema of the wall of the gallbladder is suspected. No calcified stones. Common bile duct measures 7 mm. Pancreas shows no acute findings. No calculi are obstruction of the kidneys except tiny nonobstructing left renal calculus. No evidence of small bowel obstruction. Significant fecal impaction of the cecum and ascending colon. Normal size appendix. No inflammatory changes in the pelvis. IMPRESSION: 1. Definitely distended gallbladder. No calcified stones. Mildly dilated intrahepatic and extrahepatic bile ducts. Please correlate with clinical findings and lab results including liver function. Additional evaluation of the gallbladder with ultrasound and or hepatobiliary nuclear scan is suggested. 2. Fecal impaction of proximal colon. 3 tiny nonobstructing left renal calculus. Reviewed, dictated and finalized at location T. BRANDER IMPRESSION: 1. Definitely distended gallbladder. No calcified stones. Mildly dilated intrah epatic and extrahepatic bile ducts. Please correlate with clinical findings and lab results including liver function. Additional evaluation of the gallbladder with ultrasound and or hepatobiliary nuclear scan is suggested. 2. Fecal impaction of proximal colon. 3 tiny nonobstructing left renal calculus .
--- NOTE | ~2025-07-24 | US_ITS ---
ULTRASOUND ABDOMEN LIMITED (RIGHT UPPER QUADRANT) Clinical History: Distended gallbladder with RUQ pain Comparison: CT abdomen and pelvis earlier same day Technique: Right upper quadrant sonography Findings: Liver: Enlarged. Echogenic. No intrahepatic biliary ductal dilatation. Normal hepatopedal flow main portal vein. Common Duct: Normal caliber. 4 mm. Gallbladder: Distended. Stones. No wall thickening. No pericholecystic fluid. Positive sonographic Peña's sign per technologist report. Pancreas: Unremarkable. IMPRESSION: 1. Worrisome for acute cholecystitis. If clinical ambiguity, consider HIDA scan. Reviewed, dictated and finalized at location R. MA PROCESSING TECHNICIAN IMPRESSION: 1. Worrisome for acute cholecystitis. If clinical ambiguity, consider HIDA sca n.
--- NOTE | ~2025-07-24 | XR_ITS ---
EXAMINATION: Operative cholangiogram: DATE: 07/26/2025 INDICATION: Cholecystitis. Dilated intrahepatic and extrahepatic bile ducts on CT scan. TECHNIQUE: Fluoroscopic images were obtained with contrast introduced intraoperatively, through the cystic duct. Fluoroscopic exposure time 20 seconds. COMPARISON: CT abdomen pelvis dated 07/24/2025. FINDINGS: Moderately dilated extrahepatic bile ducts are noted consistent with CT findings. Multiple well-circumscribed filling defects are noted in the distal common bile duct obstructing the distal bile duct. Contrast is not flowing into the duodenum. Findings are suggestive of distal choledocholithiasis, obstructing the distal bile duct.. IMPRESSION: 1. Findings suggestive of choledocholithiasis causing obstruction of distal bile duct. Findings were conveyed to the surgeon by telephone call. Reviewed, dictated and finalized at location T. RIAL CUTTER IMPRESSION: 1. Findings suggestive of choledocholithiasis causing obstruction of distal jerri e duct. Findings were conveyed to the surgeon by telephone call.
--- NOTE | ~2025-07-24 | XR_ITS ---
EXAM/PROCEDURE: XR ERCP HISTORY: ABD PAIN COMPARISON: None available. TECHNIQUE: Fluoroscopic images for ERCP provided. Fluoroscopy time: 189.9 seconds Dose: 46.67 mGy FINDINGS: No extravasation of contrast seen. The biliary system appears patent. IMPRESSION: ERCP fluoroscopic images. No radiologist present. See operative/procedure report for complete details. Reviewed, dictated and finalized at location A. BILITATION CASEWORKER IMPRESSION: ERCP fluoroscopic images. No radiologist present. See operative/procedure repor t for complete details.
[2025-07-24 20:28] VITALS: BP 143/125; TEMP 36.2
[2025-07-24 20:41] VITALS: BP 151/69; PULSE 64; RESP 21; O2SAT 97
[2025-07-24] MEDS: HYDROmorphone HCL INJ (*CRX) 1 MG/ML SYR 0.5 MG IV PUSH (21:04)
[2025-07-24] MEDS: ONDANSETRON INJ 4 MG/2 ML VIAL IV PUSH (21:05)
[2025-07-24 21:10] LABS: Hematocrit 39.4 % (37.0-47.0); Hemoglobin 13.2 g/dL (12.0-15.0); Immature Granulocyte Percent A 0.4 % (0-0.5); Lymphocytes Absolute Auto 1.64 K/mm3 (0.9-3.2); Mean Corpuscular HGB Conc 33.5 g/dl (32-36); Mean Corpuscular Hemoglobin 31.6 pg (26-34); Mean Corpuscular Volume 94.3 fl (80-100); Nucleated Red Blood Cells Absolute Auto 0.000 K/mm3 (0.0-0.012); Nucleated Red Blood Cells Perc 0.0 % (0.0-0.2); Platelet Count Result 301 k/mm3 (150-375); Red Blood Count 4.18 M/mm3 (4.2-5.4); White Blood Count 13.9 K/mm3 (4.5-10.0)
[2025-07-24 21:24] LABS: Alanine Aminotransferase 221 U/L (6-35); Albumin Level 4.0 g/dL (3.5-5.1); Alkaline Phosphatase 150 U/L (38-126); Anion Gap 6 mmol/L (4-12); Aspartate Amino Transferase 381 U/L (14-36); Bilirubin,Total 0.9 mg/dL (0.2-1.3); Blood Urea Nitrogen 18 mg/dL (7-17); Calcium 9.0 mg/dL (8.4-10.2); Carbon Dioxide 24 mmol/L (22-30); Chloride 105 mmol/L (98-107); Estimated Glomerular Filt Rate > 60; Glucose 131 mg/dL (65-110); Lipase 53 U/L (23-300); Potassium 3.6 mmol/L (3.4-5.0); Sodium 135 mmol/L (137-145); Total Protein 7.1 g/dL (6.3-8.2)
[2025-07-24 21:26] LABS: INR 1.0; Prothrombin Time 13.1 Seconds (11.1-14.7)
[2025-07-24 21:27] LABS: Partial Thromboplastin Time 27.1 Seconds (22.3-36.8)
[2025-07-24 21:45] LABS: Appearance Urine Clear (Clear); Glucose Urine UA Negative (Negative); Leukocyte Esterase Ur Negative LEU/UL (Negative); Nitrate Urine Negative (Negative); Specific Grav Ur 1.029 (1.001-1.035)
[2025-07-24 21:52] LABS: Add Urine Microscopic? NO
--- NOTE | 2025-07-24 22:04 | ED_ITS ---
HPI - Abdominal Pain General Chief Complaint: Abdominal Pain Stated Complaint: epigastric pain/gallbladder Time Seen by Provider: 07/24/25 20:44 History of Present Illness HPI narrative: 55 year old female presenting with upper abdominal pain that began this morning. She states that she has been seen for this before reporting that she was told she has an enlarged gallbladder and is due to see a general surgeon August 01. Denies vomiting/diarrhea, chest pain/shortness of breath, or fever/chills. Related Data Home Medications ?Medication ?Instructions ?Recorded ?Confirmed ?Last Taken ?Type cyclobenzaprine 5 mg tablet 5 mg PO HS PRN muscle spas m 07/25/25 07/25/25 Unknown History famotidine 20 mg tablet 20 mg PO HS PRN indigestion 07/25/25 07/25/25 Unknown History oxycodone 5 mg tablet 5 mg PO HS PRN pain 07/25/25 07/25/25 Unknown History Allergies Allergy/AdvReac Type Severity Reaction Status Date / Time codeine Allergy Unknown Vomiting Verified 07/25/25 02:52 [facility] Past Medical History Medical History (Updated 07/26/25 @ 15:28 by Zach Peterson, DO) Cervical spine arthritis with nerve pain Neuralgia Obesity Colon cancer screening Radiculopathy Abnormality of left breast on screening mammogram Screening mammogram, encounter for BMI over 35 BMI 34.0-34.9,adult Body mass index (BMI) of 35.0 to 35.9 in adult Mixed hyperlipidemia Surgical History Surgical History S/P total abdominal hysterectomy (12/01/07) ANSELMO - leiomyoma History of colposcopy (10/22/20) colpo / BX - squamous atypia Delivery by section (04/09/00) rpt c/s with Tubal ligation History of gynecological procedure (~1997) laparoscopic/removal of adhesion Delivery by section (04/24/97) Primary C/S - nonreassuring heart rate strip, cord around neck x 1, pelvic endometriosis History of cryosurgery (~1992) H/O right breast biopsy (~2016) Benign Family History Family History Father Hypertension Malignant neoplasm of prostate Mother Hypertension Family history of osteoarthritis Sibling COVID-19 Social History Social History Smoking status: Former smoker Tobacco type: cigarettes Second hand tobacco smoke exposure: No Alcohol intake: current Drinks per week: 3 Substance use: never Substance use type: does not use Lack of Transportation: No Lack of Food: Never True Current Housing: I Have Housing Concerned About Future Housing: No Difficulty Paying Gas/Electric Bills: No Difficulty Paying for Meds: No Currently Unemployed: No Education: High School Diploma/GED Difficulty w/ Childcare or Family Care: No Living arrangements: with family Additional living arrangements comments: Occupation/Education: occupation 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 HEAD: Normocephalic, atraumatic. EYES: PERRLA and EOMI. ENT: Nares clear, no rhinorrhea or epistaxis. Mucous membranes moist. Oropharynx without tonsillar hypertrophy exudate or other lesions. Bilateral TMs pearly hope non-bulging NECK: Supple. No adenopathy or masses. No carotid bruits or JVD CHEST: Clear to auscultation. No respiratory distress. No wheezes rales or rhonchi HEART: Regular rate and rhythm. No murmur heard. Normal peripheral pulses. ABDOMEN: Diffuse TTP, worse on right side, normal active bowel sounds. EXTREMITIES: Normal range of motion. No edema. SKIN: Warm, dry, no rash. NEURO: No focal deficits. Alert and oriented x3. PSYCH: Normal mood and affect Course Vital Signs Vital signs: Vital Signs Temperature 97.2 F L 07/24/25 20:28 Blood Pressure 143/125 H 07/24/25 20:28 Temperature 98.2 F 07/26/25 14:00 Pulse Rate 80 07/26/25 14:00 Respiratory Rate 20 07/26/25 14:00 Blood Pressure 127/69 07/26/25 14:00 Pulse Oximetry 93 07/26/25 14:00 Oxygen Delivery Room Air 07/26/25 08:00 MDM MDM Narrative Medical decision making narrative: 55 year old female presenting with upper abdominal pain and nausea that began this morning. She states that she has been seen for this before reporting that she was told she has an enlarged gallbladder and is due to see a general surgeon August 01. Denies vomiting/diarrhea, chest pain/shortness of breath, or fever/chills. Upon my initial assessment patient is afebrile but appears lethargic and fatigued. CMP demonstrates signs of dehydration as well as increased AST, ALT and alkaline phosphatase since she was last seen at the end of June. CBC also demonstrates leukocytosis at 13.9. Administered Zofran, Dilaudid, and Toradol which improved the patient's nausea but did little to help the pain. CT abdomen pelvis demonstrates a distended gallbladder. No calcified stones. Mildly dilated intrahepatic and extrahepatic bile ducts. Further recommends clinical correlation and additional imaging of the gallbladder. Other findings include fecal impaction of proximal colon and 3 tiny nonobstructing left renal calculi. Discussed with Dr. Peterson with general surgery patient presentation and workup. Agrees with admission at this time and recommends a RUQ US. Discussed with Dr. Valdez with hospitalist patient presentation and workup. Agrees with admission at this time and recommends fluids and pain control. RUQ US demonstrates a distended gallbladder with cholelithiasis and a positive sonographic Peña's sign. There was no wall thickening or pericholecystic fluid. There is no biliary dilation. Hepatic steatosis is present without other hepatic lesions. Reading also notes no right hydronephrosis or renal calculus. Patient is stable pending transfer upstairs. Differential Diagnosis Differential Diagnosis: Differential diagnostic considerations for acute abdominal pain include surgical abdominal etiology, ischemic bowel, inflammatory bowel disease, gastritis, PUD, gastroenteritis, cardiac etiology, appendicitis, diverticulitis, bowel obstruction, kidney stone, pyelonephritis, abdominal aortic aneurysm, pancreatitis, constipation, endometriosis. Medical Records I have reviewed the following patient records and this information was taken into consideration when formulating the assessment and plan.: previous labs and previous ER visits Lab Data MDM Lab Attestation statement: I personally reviewed the patient's lab results. 07/26/25 05:14 07/26/25 05:14 Labs: Lab Results 07/24/25 07/24/25 07/26/25 Range/Units 21:03 21:27 05:14 WBC 13.9 H 27.8 H (4.5-10.0) K/mm3 RBC 4.18 L 4.29 (4.2-5.4) M/mm3 Hgb 13.2 13.5 (12.0-15.0) g/dL Hct 39.4 41.6 (37.0-47.0) % MCV 94.3 97.0 (80-100) fl MCH 31.6 31.5 (26-34) pg MCHC 33.5 32.5 (32-36) g/dl RDW 13.9 14.1 (11.5-14.5) % Plt Count 301 274 (150-375) k/mm3 MPV 9.7 10.0 (7.4-10.4) fl Immature Gran % (Auto) 0.4 (0-0.5) % Neut % (Auto) 78.9 H (45.5-73.1) % Lymph % (Auto) 11.8 L (18.3-44.2) % [place] % (Auto) 6.3 (2.6-8.5) % Eos % (Auto) 2.0 (0-4.4) % Baso % (Auto) 0.6 (0.2-1.2) % Lymph # (Auto) 1.64 (0.9-3.2) K/mm3 [place] # (Auto) 0.9 H (0.1-0.6) K/mm3 Eos # (Auto) 0.3 (0-0.3) K/mm3 Baso # (Auto) 0.1 (0.0-0.1) K/mm3 Abs Immat Gran (auto) 0.05 H (0.00-0.031) K/mm3 Absolute Neuts (auto) 11.0 H (1.3-6.7) K/mm3 Absolute Nucleated RBC 0.000 (0.0-0.012) K/mm3 Nucleated RBC % 0.0 (0.0-0.2) % PT 13.1 (11.1-14.7) Seconds INR 1.0 APTT 27.1 (22.3-36.8) Seconds Sodium 135 L 134 L (137-145) mmol/L Potassium 3.6 3.9 (3.4-5.0) mmol/L Chloride 105 101 (98-107) mmol/L Carbon Dioxide 24 28 (22-30) mmol/L Anion Gap 6 5 (4-12) mmol/L BUN 18 H 9 D (7-17) mg/dL Creatinine 0.56 L 0.61 L (0.7-1.0) mg/dL Estim Creat Clear Calc Not Reportable Not Reportable Estimated GFR > 60 > 60 (59 - ) Glucose 131 H 131 H (65-110) mg/dL Calcium 9.0 9.0 (8.4-10.2) mg/dL Total Bilirubin 0.9 4.4 H (0.2-1.3) mg/dL AST 381 H 487 H (14-36) U/L ALT 221 H 914 H (6-35) U/L Alkaline Phosphatase 150 H 283 H (38-126) U/L Total Protein 7.1 6.9 (6.3-8.2) g/dL Albumin 4.0 3.7 (3.5-5.1) g/dL Lipase 53 26 (23-300) U/L Urine Color Dark yellow (Yellow) Urine Appearance Clear (Clear) Urine pH 5.0 (5.0-9.0) Ur Specific [place] 1.029 (1.001-1.035) Urine Protein Negative (Negative) mg/dL Urine Glucose (UA) Negative (Negative) mg/dL Urine Ketones Trace H (Negative) mg/dL Ur Blood (Man) Negative (Negative) Urine Nitrate Negative (Negative) Urine Bilirubin 1+ H (Negative) Urine Urobilinogen 1.0 (<2.0) mg/dL Leukocyte Esterase Rfl Negative (Negative) TERENCE/UL Blood Type O Positive Antibody Screen Negative Imaging Data Attestation: I personally reviewed and interpreted this imaging study as follows: Radiologist's impression: ITS Impressions Abdomen/Pelvis CT 07/24/25 21:42 IMPRESSION: 1. Definitely distended gallbladder. No calcified stones. Mildly dilated intrahepatic and extrahepatic bile ducts. Please correlate with clinical findings and lab results including liver function. Additional evaluation of the gallbladder with ultrasound and or hepatobiliary nuclear scan is suggested. 2. Fecal impaction of proximal colon. 3 tiny nonobstructing left renal calculus. Abdomen Ultrasound 07/25/25 07:45 IMPRESSION: 1. Worrisome for acute cholecystitis. If clinical ambiguity, consider HIDA scan. Discharge Plan Discharge Clinical Impression: Biliary colic, Abdominal pain Patient Disposition: Still a Patient Condition: Stable
[2025-07-24] MEDS: KETOROLAC 15 MG/ML VIAL (*BKC) IV PUSH (22:29)
[2025-07-24] MEDS: SODIUM CHLORIDE 0.9% IV 1,000 ML 999 ML IV CONT (23:24)
[2025-07-25] VITALS (10 sets, daily range): BP systolic 112–141; BP diastolic 59–81; PULSE 66–93; RESP 15–20; TEMP 36.2–37; O2SAT 91–97
[2025-07-25] MEDS: HYDROmorphone HCL INJ (*CRX) 1 MG/ML SYR 0.5 MG IV PUSH ×6 (01:18→20:03)
[2025-07-25] MEDS: ONDANSETRON INJ 4 MG/2 ML VIAL IV PUSH (11:00)
--- NOTE | 2025-07-25 11:53 | WPCEDHO ---
ED Hand Off Checklist All vitals saved:Yes IV Site documented:Yes All med administrations documented:Yes Triage Note Triage Note Pt present to ED via ambulance c/ 07/24/25 20:28 o 10/10 constant abdominal pain radiating to back, and n/v. Per pt was seen here thanksgiving for gallbladder issues, and seems to be having another episode . Pt took oxycodone prior to arrival. Pt appears diaphoretic in triage and dry hiving. Allergies codeine Allergy (Unknown, Verified 07/25/25 02:52) Vomiting Family History (Last Reviewed 07/25/25 @ 02:53 by Anuj Huang, CHRISTOPHER) Father Hypertension Malignant neoplasm of prostate Mother Hypertension Family history of osteoarthritis Sibling COVID-19 Active Medications including assessments/comments Hydromorphone HCl (Hydromorphone Hcl Inj (*Crx) 1 Mg/Ml Syr) 0.5 mg IV PUSH Q4H PRN PRN Reason: Pain Rated 7-10 Last Admin: 07/25/25 11:01 Dose: 0.5 mg Documented By: EMELY [facility] Pain Assessment Document 07/25/25 11:01 EMELY (Rec: 07/25/25 11:01 EMELY [id number]) Pain Evaluation Pain Evaluation Assessment Pain Scale Pain Scale Used Numeric (1 - 10) Self Report Pain Assessment Reported Pain Level 5 Pain Score Pain Score 5: Self Report Admin: 07/25/25 07:03 Dose: 0.5 mg Documented By: ELADIO [facility] Pain Assessment Document 07/25/25 07:03 EMCiera (Rec: 07/25/25 07:04 EMCiera [id number]) Pain Evaluation Pain Evaluation Assessment Pain Scale Pain Scale Used Numeric (1 - 10) Self Report Pain Assessment Reported Pain Level 8 Pain Score Pain Score 8: Self Report Re-Assess: [facility] Pain/Fever Reassessment Document 07/25/25 07:47 EMELY (Rec: 07/25/25 07:47 EMELY [id number]) Reason for Administratin Reason for Pain Administration Pain Scale Pain Scale Used Numeric (1 - 10) Self Report Pain Assessment Reported Pain Level 5 Pain Score Pain Score 5: Self Report Admin: 07/25/25 01:18 Dose: 0.5 mg Documented By: DERECK [facility] Pain Assessment Document 07/25/25 01:18 HNSanjay (Rec: 07/25/25 01:18 HNK [id number]) Pain Scale Pain Scale Used Numeric (1 - 10) Self Report Pain Assessment Reported Pain Level 7 Pain Score Pain Score 7: Self Report Re-Assess: MAR Pain/Fever Reassessment Document 07/25/25 01:48 DERECK (Rec: 07/25/25 03:32 DERECK [id number]) Pain Scale Pain Scale Used Numeric (1 - 10) Self Report Pain Assessment Reported Pain Level 5 Pain Score Pain Score 5: Self Report Ondansetron HCl (Ondansetron Inj 4 Mg/2 Ml Vial) 4 mg IV PUSH Q4H PRN PRN Reason: Nausea Last Admin: 07/25/25 11:00 Dose: 4 mg Documented By: EMELY Administered/Completed Medications Discontinued Medications Hydromorphone HCl (Hydromorphone Hcl Inj (*Crx) 1 Mg/Ml Syr) 0.5 mg IV PUSH ONCE STA Stop: 07/24/25 20:54 Last Admin: 07/24/25 21:04 Dose: 0.5 mg Documented By: RUTH Sodium Chloride (Normal Saline Iv) 1,000 mls @ 999 mls/hr IV CONT .Q1H1M STA Stop: 07/25/25 00:13 Last Infusion: 07/25/25 00:25 Dose: Infused Documented By: Admin: 07/24/25 23:24 Dose: 999 mls/hr Documented By: DERECK Ketorolac Tromethamine (Ketorolac 15 Mg/Ml Vial (*Bkc)) 15 mg IV PUSH ONCE STA Stop: 07/24/25 22:23 Last Admin: 07/24/25 22:29 Dose: 15 mg Documented By: DERECK Ondansetron HCl (Ondansetron Inj 4 Mg/2 Ml Vial) 4 mg IV PUSH ONCE STA Stop: 07/24/25 20:54 Last Admin: 07/24/25 21:05 Dose: 4 mg Documented By: RUTH Interventions/Assessments IV / Saline Lock, Insert Start: 07/24/25 20:12 Freq: Status: Active Protocol: Document 07/24/25 23:24 DERECK (Rec: 07/24/25 23:25 DERECK [id number]) IV Assessment Peripheral Access Left Antecubital IV Catheter Access Initiated Before Arrival Catheter Gauge 20 IV Site Assessment WNL IV Care and WNL Maintenance PA: Gastrointestinal Assessment Start: 07/24/25 20:12 Freq: Status: Active Protocol: Document 07/24/25 20:45 HNK (Rec: 07/25/25 00:26 HNK [id number]) GI Assessment Gastrointestinal WNL Except Parameters Gastrointestinal Nausea,Pain,Vomiting Symptoms Description Soft,Round,Tender Pattern Normal Flatus Present Gastrointestinal RQU abd pain, hx GB issues. Additional Comments Last Vital Signs Temperature 97.2 F L 07/24/25 20:28 Pulse Rate 76 07/25/25 11:04 Respiratory Rate 20 07/25/25 11:04 Pulse Oximetry 97 07/25/25 11:04 Blood Pressure 119/68 07/25/25 11:04 Blood Pressure Mean 85 07/25/25 11:04 Blood Pressure Position Supine 07/25/25 11:04 Weight 91.26 kg 07/24/25 20:28 Last Result - Abnormals Only WBC 13.9 K/mm3 (4.5-10.0) H 07/24/25 21:03 RBC 4.18 M/mm3 (4.2-5.4) L 07/24/25 21:03 Neut % (Auto) 78.9 % (45.5-73.1) H 07/24/25 21:03 Lymph % (Auto) 11.8 % (18.3-44.2) L 07/24/25 21:03 [place] # (Auto) 0.9 K/mm3 (0.1-0.6) H 07/24/25 21:03 Abs Immat Gran (auto) 0.05 K/mm3 (0.00-0.031) H 07/24/25 21:03 Absolute Neuts (auto) 11.0 K/mm3 (1.3-6.7) H 07/24/25 21:03 Sodium 135 mmol/L (137-145) L 07/24/25 21:03 BUN 18 mg/dL (7-17) H 07/24/25 21:03 Creatinine 0.56 mg/dL (0.7-1.0) L 07/24/25 21:03 Glucose 131 mg/dL (65-110) H 07/24/25 21:03 AST 381 U/L (14-36) H 07/24/25 21:03 ALT 221 U/L (6-35) H 07/24/25 21:03 Alkaline Phosphatase 150 U/L (38-126) H 07/24/25 21:03 Urine Ketones Trace mg/dL (Negative) H 07/24/25 21:27 Urine Bilirubin 1+ (Negative) H 07/24/25 21:27 Most Recent Suicide Severity Rating Suicide Severity Rating NO RISK INDICATED 07/25/25 02:41
--- NOTE | 2025-07-25 12:15 | ADMGEN ---
This patient, Cady Chavez, was admitted to Medical Room 349-01. Patient/family oriented to hospital policies and general routines including ID bracelet, bed and alarms, visiting hours, pain management, procedures, bathroom and other care routines, personal items, smoking policy, room service/diet, and visiting hours. Information on how to activate the Rapid Response Team has been discussed. Patient/Family are encouraged to report perceived risks to care and to ask questions if they do not understand what they are told or what they should do.
--- NOTE | 2025-07-25 13:36 | PM.CNGS ---
Assessment and Plan Assessment and plan (1) Biliary colic: Code(s): K80.50 - Calculus of bile duct without cholangitis or cholecystitis without obstruction Status: Acute Assessment and Plan: Patient presented to the ED yesterday with RUQ pain that started earlier in the day. She had previously been seen in the ED two weeks ago for similar symptoms and sent home with medication and referral to general surgery office. Pain had initially resolved, but had come back several times since she was last seen. She was able to manage with previously prescribed pain medications until yesterday's episode. Upon arrival to ED CT showed evidence of a distended gallbladder. RUQ US showed gallbladder distention with cholelithiasis. Liver enzymes are elevated, but bilirubin is normal. WBC elevated to 13,900. Patient still very tender to RUQ on exam. Scheduled for laparoscopic cholecystectomy tomorrow with Dr. Peterson. OK for clear liquids today. NPO at midnight. (2) Fecal impaction of colon: Code(s): K56.41 - Fecal impaction Status: Acute Assessment and Plan: Patient noted to have fecal impaction of proximal colon on CT. Patient seemed to be somewhat surprised by this as she last had a BM yesterday. Will opt not to stimulate bowels prior to surgery. Will continue to monitor postoperatively. Plan Discussed patient's case and plan of care with Dr. Peterson. History of Present Illness Consult details Consult date: 07/25/25 Reason for consult: other (gallbladder concerns) Requesting physician: Harriet Lopez PA Narrative: Patient is a 55 year old otherwise fairly healthy female who presented to the ED yesterday with complaints of upper abdominal pain and burning. She had previously been seen in the emergency department 07/12/[address] for similar symptoms. A CT at this time was benign. She was sent home with prescriptions for famotidine, Tylenol extra-strength, Zofran, and oxycodone. She was scheduled for outpatient follow-up on August 01 in general surgery office with Dr. Noe. Pain had resolved after discharge. However this past Wednesday / Wednesday patient had recurrent epigastric pain. She took her Oxycodone and famotidine and pain resolved. She states her abdomen started feeling weird again yesterday morning and this continued to progress into RUQ pain, prompting her to present to the ED. Upon admission, labs revealed an elevated white blood cell count of 13.9. Elevated liver enzymes, but normal bilirubin. A CT was obtained and demonstrated a distended gallbladder, but no stones or pericholecystic fluid. Also noted was a fecal impaction of the proximal colon. Right upper quadrant ultrasound was then obtained and demonstrated distended gallbladder with cholelithiasis. No wall thickening or pericholecystic fluid. Positive sonographic Peña sign. Patient admitted to hospitalist and general surgery team consulted. Upon interview today, patient endorses right upper quadrant pain slightly improved with medication. She states that her last bowel movement was yesterday. she had oatmeal with a protein shake for breakfast and pizza and pasta for lunch yesterday. she states that she felt nauseous and had some dry heaving in triage yesterday, but no vomiting. She felt as though the nausea was due to the oxycodone. Patient's previous abdominal surgeries include 2 C sections and a hysterectomy. [facility] Past Medical History Medical History (Updated 07/25/25 @ 14:15 by Dilia Curtis PA-C) Cervical spine arthritis with nerve pain Neuralgia Obesity Colon cancer screening Radiculopathy Abnormality of left breast on screening mammogram Screening mammogram, encounter for BMI over 35 BMI 34.0-34.9,adult Body mass index (BMI) of 35.0 to 35.9 in adult Mixed hyperlipidemia Surgical History Surgical History S/P total abdominal hysterectomy (12/01/07) ANSELMO - leiomyoma History of colposcopy (10/22/20) colpo / BX - squamous atypia Delivery by section (04/09/00) rpt c/s with Tubal ligation History of gynecological procedure (~1997) laparoscopic/removal of adhesion Delivery by section (04/24/97) Primary C/S - nonreassuring heart rate strip, cord around neck x 1, pelvic endometriosis History of cryosurgery (~1992) H/O right breast biopsy (~2016) Benign Family History Family History Father Hypertension Malignant neoplasm of prostate Mother Hypertension Family history of osteoarthritis Sibling COVID-19 Social History Social History Smoking status: Former smoker Tobacco type: cigarettes Second hand tobacco smoke exposure: No Alcohol intake: current Drinks per week: 3 Substance use: never Substance use type: does not use Lack of Transportation: No Lack of Food: Never True Current Housing: I Have Housing Concerned About Future Housing: No Difficulty Paying Gas/Electric Bills: No Difficulty Paying for Meds: No Currently Unemployed: No Education: High School Diploma/GED Difficulty w/ Childcare or Family Care: No Living arrangements: with family Additional living arrangements comments: Occupation/Education: occupation 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 Gender identity (if verbalized by the patient): Female Sexual Orientation (if Verbalized by the Patient): Straight or Heterosexual Spiritual care concerns: No Meds Home Medications and Allergies Home Medications ?Medication ?Instructions ?Recorded ?Confirmed ?Type estradiol 2 mg tablet 2 mg PO DAILY #90 tabs 01/02/25 07/25/25 Rx sertraline 100 mg tablet 100 mg PO DAILY #90 tabs 01/02/25 07/25/25 Rx acetaminophen 500 mg tablet 1,000 mg (2 x 500 mg) PO Q6H PRN 07/12/25 07/25/25 Rx (Tylenol Extra Strength) pain #50 tabs cyclobenzaprine 5 mg tablet 5 mg PO HS PRN muscle spasm 07/25/25 07/25/25 History famotidine 20 mg tablet 20 mg PO HS PRN indigestion 07/25/25 07/25/25 History oxycodone 5 mg tablet 5 mg PO HS PRN pain 07/25/25 07/25/25 History Allergies Allergy/AdvReac Type Severity Reaction Status Date / Time codeine Allergy Unknown Vomiting Verified 07/25/25 02:52 Vital Signs Vital Signs - 24 hr 07/24/25 20:28 07/24/25 20:41 07/25/25 00:00 Temperature 97.2 F L Pulse Rate 64 66 Respiratory Rate 21 H 18 Blood Pressure 143/125 H 151/69 H 134/81 Pulse Oximetry 97 95 Oxygen Delivery 07/25/25 00:15 07/25/25 02:15 07/25/25 04:00 Temperature Pulse Rate 66 79 78 Respiratory Rate 18 18 15 Blood Pressure 141/69 H 112/67 121/74 Pulse Oximetry 95 91 93 Oxygen Delivery 07/25/25 06:15 07/25/25 07:48 07/25/25 11:04 Temperature Pulse Rate 73 84 76 Respiratory Rate 16 18 20 Blood Pressure 119/66 120/74 119/68 Pulse Oximetry 91 92 97 Oxygen Delivery 07/25/25 12:15 07/25/25 12:23 Temperature 97.5 F L Pulse Rate 77 Respiratory Rate 16 Blood Pressure 135/66 Pulse Oximetry 97 Oxygen Delivery Room Air Exam Const: General: comfortable and no acute distress Eyes: General: appearance normal, both eyes and all related structures Neck: Neck: supple and no JVD Resp: Effort & Inspection: normal respiratory effort Cardio: Rate: regular rate GI: Inspection: non-distended GI Palp: Yes Soft to palpation, Yes Tenderness to palpation present (GI) (RUQ) and No Guarding due to palpation present (GI) Auscultation: Hypoactive bowel sounds present Skin: General skin exam: normal color and no rashes or lesions noted Neuro: Speech: normal speech Extrem: General: normal to inspection Psych: Mental Status: mental status grossly normal Results Labs 07/24/25 21:03 07/24/25 21:03 Labs: Abnormal lab results 07/24/25 07/24/25 Range/Units 21:03 21:27 WBC 13.9 H (4.5-10.0) K/mm3 RBC 4.18 L (4.2-5.4) M/mm3 Neut % (Auto) 78.9 H (45.5-73.1) % Lymph % (Auto) 11.8 L (18.3-44.2) % Sequoyah # (Auto) 0.9 H (0.1-0.6) K/mm3 Abs Immat Gran (auto) 0.05 H (0.00-0.031) K/mm3 Absolute Neuts (auto) 11.0 H (1.3-6.7) K/mm3 Sodium 135 L (137-145) mmol/L BUN 18 H (7-17) mg/dL Creatinine 0.56 L (0.7-1.0) mg/dL Glucose 131 H (65-110) mg/dL AST 381 H (14-36) U/L ALT 221 H (6-35) U/L Alkaline Phosphatase 150 H (38-126) U/L Urine Ketones Trace H (Negative) mg/dL Urine Bilirubin 1+ H (Negative) Diabetes panel 07/24/25 Range/Units 21:03 Sodium 135 L (137-145) mmol/L Potassium 3.6 (3.4-5.0) mmol/L Chloride 105 (98-107) mmol/L Carbon Dioxide 24 (22-30) mmol/L BUN 18 H (7-17) mg/dL Creatinine 0.56 L (0.7-1.0) mg/dL Glucose 131 H (65-110) mg/dL Calcium 9.0 (8.4-10.2) mg/dL AST 381 H (14-36) U/L ALT 221 H (6-35) U/L Alkaline Phosphatase 150 H (38-126) U/L Total Protein 7.1 (6.3-8.2) g/dL Albumin 4.0 (3.5-5.1) g/dL Calcium panel 07/24/25 Range/Units 21:03 Calcium 9.0 (8.4-10.2) mg/dL Albumin 4.0 (3.5-5.1) g/dL Pituitary panel 07/24/25 Range/Units 21:03 Sodium 135 L (137-145) mmol/L Potassium 3.6 (3.4-5.0) mmol/L Chloride 105 (98-107) mmol/L Carbon Dioxide 24 (22-30) mmol/L BUN 18 H (7-17) mg/dL Creatinine 0.56 L (0.7-1.0) mg/dL Glucose 131 H (65-110) mg/dL Calcium 9.0 (8.4-10.2) mg/dL Adrenal panel 07/24/25 Range/Units 21:03 Sodium 135 L (137-145) mmol/L Potassium 3.6 (3.4-5.0) mmol/L Chloride 105 (98-107) mmol/L Carbon Dioxide 24 (22-30) mmol/L BUN 18 H (7-17) mg/dL Creatinine 0.56 L (0.7-1.0) mg/dL Glucose 131 H (65-110) mg/dL Calcium 9.0 (8.4-10.2) mg/dL Total Bilirubin 0.9 (0.2-1.3) mg/dL AST 381 H (14-36) U/L ALT 221 H (6-35) U/L Alkaline Phosphatase 150 H (38-126) U/L Total Protein 7.1 (6.3-8.2) g/dL Albumin 4.0 (3.5-5.1) g/dL All other labs normal.
--- NOTE | 2025-07-25 16:41 | PM.IMHP2 ---
H&P: HPI History of Present Illness Date/Time: 07/25/25 11:30 Chief Complaint: upper abdominal pain Narrative: 55 year old female with no significant past medical history presenting with upper abdominal pain that began in morning. She states that she has been seen for this before reporting that she was told she has an enlarged gallbladder and is due to see a general surgeon August 01. Denies vomiting/diarrhea, chest pain/shortness of breath, or fever/chills. Patient reports that she has had stomach pain since . She presented to the ED two other times for the exact same page and was given oxycodone and pain subsided for just 1-2 days but eventually came back. Patient reports she has not had any problems defcating or urinating. Review of Systems Review of Systems: All systems reviewed & are unremarkable except as noted in HPI and below PMFSH Past Medical History Medical History (Updated 07/25/25 @ 14:15 by Dilia Curtis PA-C) Cervical spine arthritis with nerve pain Neuralgia Obesity Colon cancer screening Radiculopathy Abnormality of left breast on screening mammogram Screening mammogram, encounter for BMI over 35 BMI 34.0-34.9,adult Body mass index (BMI) of 35.0 to 35.9 in adult Mixed hyperlipidemia Surgical History Surgical History S/P total abdominal hysterectomy (12/01/07) ANSELMO - leiomyoma History of colposcopy (10/22/20) colpo / BX - squamous atypia Delivery by section (04/09/00) rpt c/s with Tubal ligation History of gynecological procedure (~1997) laparoscopic/removal of adhesion Delivery by section (04/24/97) Primary C/S - nonreassuring heart rate strip, cord around neck x 1, pelvic endometriosis History of cryosurgery (~1992) H/O right breast biopsy (~2016) Benign Family History Family History Father Hypertension Malignant neoplasm of prostate Mother Hypertension Family history of osteoarthritis Sibling COVID-19 Social History Social History Smoking status: Former smoker Tobacco type: cigarettes Second hand tobacco smoke exposure: No Alcohol intake: current Drinks per week: 3 Substance use: never Substance use type: does not use Lack of Transportation: No Lack of Food: Never True Current Housing: I Have Housing Concerned About Future Housing: No Difficulty Paying Gas/Electric Bills: No Difficulty Paying for Meds: No Currently Unemployed: No Education: High School Diploma/GED Difficulty w/ Childcare or Family Care: No Living arrangements: with family Additional living arrangements comments: Occupation/Education: occupation 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 Gender identity (if verbalized by the patient): Female Sexual Orientation (if Verbalized by the Patient): Straight or Heterosexual Spiritual care concerns: No Meds Home Medications and Allergies Home Medications ?Medication ?Instructions ?Recorded ?Confirmed ?Type estradiol 2 mg tablet 2 mg PO DAILY #90 tabs 01/02/25 07/25/25 Rx sertraline 100 mg tablet 100 mg PO DAILY #90 tabs 01/02/25 07/25/25 Rx acetaminophen 500 mg tablet 1,000 mg (2 x 500 mg) PO Q6H PRN 07/12/25 07/25/25 Rx (Tylenol Extra Strength) pain #50 tabs cyclobenzaprine 5 mg tablet 5 mg PO HS PRN muscle spasm 07/25/25 07/25/25 History famotidine 20 mg tablet 20 mg PO HS PRN indigestion 07/25/25 07/25/25 History oxycodone 5 mg tablet 5 mg PO HS PRN pain 07/25/25 07/25/25 History Allergies Allergy/AdvReac Type Severity Reaction Status Date / Time codeine Allergy Unknown Vomiting Verified 07/25/25 02:52 Vital Signs Vital Signs - 24 hr 07/24/25 20:28 07/24/25 20:41 07/25/25 00:00 Temperature 97.2 F L Pulse Rate 64 66 Respiratory Rate 21 H 18 Blood Pressure 143/125 H 151/69 H 134/81 Pulse Oximetry 97 95 Oxygen Delivery 07/25/25 00:15 07/25/25 02:15 07/25/25 04:00 Temperature Pulse Rate 66 79 78 Respiratory Rate 18 18 15 Blood Pressure 141/69 H 112/67 121/74 Pulse Oximetry 95 91 93 Oxygen Delivery 07/25/25 06:15 07/25/25 07:48 07/25/25 11:04 Temperature Pulse Rate 73 84 76 Respiratory Rate 16 18 20 Blood Pressure 119/66 120/74 119/68 Pulse Oximetry 91 92 97 Oxygen Delivery 07/25/25 12:15 07/25/25 12:23 07/25/25 14:00 Temperature 97.5 F L 98.6 F Pulse Rate 77 77 Respiratory Rate 16 16 Blood Pressure 135/66 132/59 L Pulse Oximetry 97 97 Oxygen Delivery Room Air Exam Const: General: comfortable and no acute distress Eyes: General: appearance normal, both eyes and all related structures Sclera: sclerae normal Pupils: Equal, round and reactive pupils present Neck: Neck: supple and no JVD Thyroid: thyroid normal Resp: Effort & Inspection: normal respiratory effort Auscultation: clear to auscultation bilaterally Cardio: Rate: regular rate Rhythm: regular rhythm GI: GI Palp: Yes Soft to palpation Auscultation: normal bowel sounds Skin: General skin exam: normal color Neuro: General: gait normal Speech: normal speech Motor exam (neuro): 5/5 motor strength present throughout Psych: Mental Status: mental status grossly normal Results Labs Labs: Short CBC 07/24/25 Range/Units 21:03 WBC 13.9 H (4.5-10.0) K/mm3 Hgb 13.2 (12.0-15.0) g/dL Hct 39.4 (37.0-47.0) % Plt Count 301 (150-375) k/mm3 BMP 07/24/25 21:03 Sodium 135 L Potassium 3.6 Chloride 105 Carbon Dioxide 24 BUN 18 H Creatinine 0.56 L Glucose 131 H Calcium 9.0 Liver Function 07/24/25 Range/Units 21:03 Total Bilirubin 0.9 (0.2-1.3) mg/dL AST 381 H (14-36) U/L ALT 221 H (6-35) U/L Alkaline Phosphatase 150 H (38-126) U/L Albumin 4.0 (3.5-5.1) g/dL Urine 07/24/25 Range/Units 21:27 Urine Color Dark yellow (Yellow) Urine Appearance Clear (Clear) Urine pH 5.0 (5.0-9.0) Ur Specific [place]ill 1.029 (1.001-1.035) Urine Protein Negative (Negative) mg/dL Urine Glucose (UA) Negative (Negative) mg/dL Quality VTE Prophylaxis VTE prophylaxis: mechanical ordered Assessment and Plan Assessment and plan (1) Biliary colic: Code(s): K80.50 - Calculus of bile duct without cholangitis or cholecystitis without obstruction Status: Acute Assessment and Plan: CT showed evidence of a distended gallbladder. RUQ US showed gallbladder distention with cholelithiasis. Liver enzymes are elevated, but bilirubin is normal. Choledocholithiasis likely not related WBC elevated to 13,900 likely due to irritated gallbladder Clear liquid diet until midnight Patient is NPO after midnight Surgery will follow (2) Fecal impaction of colon: Code(s): K56.41 - Fecal impaction Status: Acute Assessment and Plan: Fecal impaction of proximal colon Hydromorphone continued from the ED for pain control Will monitor for defcation since patient states she had a BM yesterday
[2025-07-25] MEDS: LACTATED RINGERS 1,000 ML 100 ML IV CONT (20:12)
[2025-07-25] MEDS: PIPERACILLIN/TAZOBACTAM SOD 3.375 GM in SODIUM CHLORIDE 0.9% IV 50 ML 100 ML IVPB (20:13)
[2025-07-26] VITALS (11 sets, daily range): BP systolic 89–145; BP diastolic 41–74; PULSE 72–81; RESP 13–20; TEMP 36.3–37; O2SAT 93–100
[2025-07-26] MEDS: HYDROmorphone HCL INJ (*CRX) 1 MG/ML SYR 0.5 MG IV PUSH ×5 (00:10→12:40)
[2025-07-26] MEDS: PIPERACILLIN/TAZOBACTAM SOD 3.375 GM in SODIUM CHLORIDE 0.9% IV 50 ML 100 ML IVPB ×5 (00:13→23:01)
[2025-07-26] MEDS: ONDANSETRON INJ 4 MG/2 ML VIAL IV PUSH ×3 (03:22→13:52)
[2025-07-26 05:33] LABS: Hematocrit 41.6 % (37.0-47.0); Hemoglobin 13.5 g/dL (12.0-15.0); Mean Corpuscular HGB Conc 32.5 g/dl (32-36); Mean Corpuscular Hemoglobin 31.5 pg (26-34); Mean Corpuscular Volume 97.0 fl (80-100); Platelet Count Result 274 k/mm3 (150-375); Red Blood Count 4.29 M/mm3 (4.2-5.4); White Blood Count 27.8 K/mm3 (4.5-10.0)
[2025-07-26 05:46] LABS: Albumin Level 3.7 g/dL (3.5-5.1); Alkaline Phosphatase 283 U/L (38-126); Anion Gap 5 mmol/L (4-12); Aspartate Amino Transferase 487 U/L (14-36); Bilirubin,Total 4.4 mg/dL (0.2-1.3); Blood Urea Nitrogen 9 mg/dL (7-17); Calcium 9.0 mg/dL (8.4-10.2); Carbon Dioxide 28 mmol/L (22-30); Chloride 101 mmol/L (98-107); Estimated Glomerular Filt Rate > 60; Glucose 131 mg/dL (65-110); Lipase 26 U/L (23-300); Potassium 3.9 mmol/L (3.4-5.0); Sodium 134 mmol/L (137-145); Total Protein 6.9 g/dL (6.3-8.2)
[2025-07-26] MEDS: LACTATED RINGERS 1,000 ML 100 ML IV CONT ×2 (05:53→23:56)
[2025-07-26 06:26] LABS: Alanine Aminotransferase 914 U/L (6-35)
--- NOTE | 2025-07-26 07:47 | P.PNIM_ITS ---
Assessment and Plan Assessment and Plan (1) Biliary colic: Code(s): K80.50 - Calculus of bile duct without cholangitis or cholecystitis without obstruction Status: Acute Assessment and Plan: CT showed evidence of a distended gallbladder. RUQ US showed gallbladder distention with cholelithiasis. Liver enzymes are elevated, but bilirubin was normal in the ED. Choledocholithiasis likely not related while patient was in ED WBC elevated from 13,900, to 27.8 today- possible infection but patient does not appear ill-- Patient was started on Zosyn 3.375 gm Patient is NPO laparoscopic cholecystectomy- was planned for today- will considered MRCP or ERCP pending surgery recommendation Will defer to surgery (2) Fecal impaction of colon: Code(s): K56.41 - Fecal impaction Status: Acute Assessment and Plan: Fecal impaction of proximal colon Last BM was 07/25 Patient asymptomatic - considering Mirlax Will monitor for defecation status Subjective Date/time seen: 07/26/25 09:20 Review of Systems Review of Systems: All systems reviewed & are unremarkable except as noted in HPI and below Exam Const: General: comfortable and no acute distress Eyes: General: appearance normal, both eyes and all related structures Pupils: Equal, round and reactive pupils present Neck: Neck: supple and no JVD Thyroid: thyroid normal Resp: Effort & Inspection: normal respiratory effort Auscultation: clear to auscultation bilaterally Cardio: Rate: regular rate Rhythm: regular rhythm GI: GI Palp: Yes Tenderness to palpation present (GI) (RLQ) Auscultation: Hypoactive bowel sounds present Skin: General skin exam: normal color Neuro: General: gait normal and deep tendon reflexes 2+ bilaterally Speech: normal speech Motor exam (neuro): 5/5 motor strength present throughout Psych: Mental Status: mental status grossly normal Affect: normal affect Objective Data Vital Signs Vital Signs: Vital Signs - 24 hr 07/25/25 07:48 07/25/25 11:04 07/25/25 12:15 Temperature Pulse Rate 84 76 Respiratory Rate 18 20 Blood Pressure 120/74 119/68 Pulse Oximetry 92 97 Oxygen Delivery Room Air 07/25/25 12:23 07/25/25 14:00 07/25/25 20:00 Temperature 97.5 F L 98.6 F 97.1 F L Pulse Rate 77 77 93 Respiratory Rate 16 16 16 Blood Pressure 135/66 132/59 L 138/65 Pulse Oximetry 97 97 94 Oxygen Delivery 07/26/25 05:29 Temperature 98.6 F Pulse Rate 81 Respiratory Rate 20 Blood Pressure 121/65 Pulse Oximetry 96 Oxygen Delivery Intake/Output Intake/Output: Intake & Output 07/23/25 07/24/25 07/25/25 07/26/25 23:59 23:59 23:59 23:59 Intake Total 1400 1018.3 Balance 1400 1018.3 Meds/Results Medications: Active Medications Generic Name Dose Route Start Last Admin Trade Name Freq PRN Reason Stop Dose Admin Hydromorphone HCl 0.5 mg 07/25/25 17:04 07/26/25 05:49 Hydromorphone Hcl Inj (*Crx) 1 Mg/Ml Syr IV PUSH 0.5 mg Q2HR PRN Administration Pain Rated 7-10 Lactated Ringer's 1,000 mls @ 100 mls/hr 07/25/25 19:15 07/26/25 05:53 Lr - Lactated Ringers Iv IV CONT 100 mls/hr .Q10H AMALIA Administration Piperacillin Sod/Tazobactam 50 mls @ 100 mls/hr 07/25/25 19:15 07/26/25 05:51 Sod 3.375 gm/ Sodium Chloride IVPB 100 mls/hr Q6HR AMALIA Administration Ondansetron HCl 4 mg 07/24/25 23:06 07/26/25 03:22 Ondansetron Inj 4 Mg/2 Ml Vial IV PUSH 4 mg Q4H PRN Administration Nausea Radiology Results: ITS Impressions Abdomen/Pelvis CT 07/24/25 21:42 IMPRESSION: 1. Definitely distended gallbladder. No calcified stones. Mildly dilated intra hepatic and extrahepatic bile ducts. Please correlate with clinical findings and lab results including liver function. Additional evaluation of the gallbladder with ultrasound and or hepatobiliary nuclear scan is suggested. 2. Fecal impaction of proximal colon. 3 tiny nonobstructing left renal calculus. Abdomen Ultrasound 07/25/25 07:45 IMPRESSION: 1. Worrisome for acute cholecystitis. If clinical ambiguity, consider HIDA scan. Labs Labs: Laboratory Results - last 24 hr 07/26/25 05:14 WBC 27.8 H RBC 4.29 Hgb 13.5 Hct 41.6 MCV 97.0 MCH 31.5 MCHC 32.5 RDW 14.1 Plt Count 274 MPV 10.0 Sodium 134 L Potassium 3.9 Chloride 101 Carbon Dioxide 28 Anion Gap 5 BUN 9 D Creatinine 0.61 L Estim Creat Clear Calc Not Reportable Estimated GFR > 60 Glucose 131 H Calcium 9.0 Total Bilirubin 4.4 H AST 487 H ALT 914 H Alkaline Phosphatase 283 H Total Protein 6.9 Albumin 3.7 Lipase 26 Blood Type O Positive Antibody Screen Negative Quality VTE Prophylaxis VTE prophylaxis: mechanical ordered
[2025-07-26] MEDS: HYDROmorphone HCL INJ (*CRX) 1 MG/ML SYR IV PUSH ×2 (14:54→17:26)
--- NOTE | 2025-07-26 15:26 | P.PNGS_ITS ---
Progress Note: A&P Assessment and Plan (1) Acute calculous cholecystitis: Code(s): K80.00 - Calculus of gallbladder with acute cholecystitis without obstruction Status: Acute Assessment and Plan: * WBC and liver enzymes went up further this AM. Zosyn started for potential cholangitis or gangrenous cholecystitis. Since bilirubin is now significantly elevated, will proceed with laparoscopic cholecystectomy with cholangiogram, poss open. Discussed this with patient. If biliary obstruction identified, will consult GI. (2) Hyperbilirubinemia: Code(s): E80.6 - Other disorders of bilirubin metabolism Status: Acute (3) Transaminitis: Code(s): R74.01 - Elevation of levels of liver transaminase levels Status: Acute Subjective Subjective Date/Time Seen: 07/26/25 15:26 Interval history: Patient still in a lot of pain. No fevers. Exam 2 GI: Inspection: obesity GI Palp: Yes Tenderness to palpation present (GI) (RUQ), No Guarding due to palpation present (GI) and No Rebound tenderness present Objective Data Vital Signs Vital Signs: Vital Signs - 24 hr 07/25/25 20:00 07/26/25 05:29 07/26/25 08:00 Temperature 97.1 F L 98.6 F Pulse Rate 93 81 Respiratory Rate 16 20 Blood Pressure 138/65 121/65 Pulse Oximetry 94 96 Oxygen Delivery Room Air 07/26/25 14:00 Temperature 98.2 F Pulse Rate 80 Respiratory Rate 20 Blood Pressure 127/69 Pulse Oximetry 93 Oxygen Delivery Intake/Output Intake/Output: Intake & Output 07/23/25 07/24/25 07/25/25 07/26/25 23:59 23:59 23:59 23:59 Intake Total 1400 1118.3 Balance 1400 1118.3 Meds/Results Medications: Active Medications Generic Name Dose Route Start Last Admin Trade Name Freq PRN Reason Stop Dose Admin Hydromorphone HCl 0.5 mg 07/26/25 14:48 Hydromorphone Hcl Inj (*Crx) 1 Mg/Ml Syr IV PUSH Q2H PRN Pain Rated 4-6 Hydromorphone HCl 1 mg 07/26/25 14:48 07/26/25 14:54 Hydromorphone Hcl Inj (*Crx) 1 Mg/Ml Syr IV PUSH 1 mg Q2H PRN Administration Pain Rated 7-10 Lactated Ringer's 1,000 mls @ 100 mls/hr 07/25/25 19:15 07/26/25 05:53 Lr - Lactated Ringers Iv IV CONT 100 mls/hr .Q10H AMALIA Administration Piperacillin Sod/Tazobactam 50 mls @ 100 mls/hr 07/25/25 19:15 07/26/25 13:13 Sod 3.375 gm/ Sodium Chloride IVPB Infused Q6HR AMALIA Infusion Ondansetron HCl 4 mg 07/24/25 23:06 07/26/25 13:52 Ondansetron Inj 4 Mg/2 Ml Vial IV PUSH 4 mg Q4H PRN Administration Nausea Radiology Results: ITS Impressions Abdomen/Pelvis CT 07/24/25 21:42 IMPRESSION: 1. Definitely distended gallbladder. No calcified stones. Mildly dilated intrahepatic and extrahepatic bile ducts. Please correlate with clinical findings and lab results including liver function. Additional evaluation of the gallbladder with ultrasound and or hepatobiliary nuclear scan is suggested. 2. Fecal impaction of proximal colon. 3 tiny nonobstructing left renal calculus. Abdomen Ultrasound 07/25/25 07:45 IMPRESSION: 1. Worrisome for acute cholecystitis. If clinical ambiguity, consider HIDA scan. Labs Labs: Laboratory Results - last 24 hr 07/26/25 05:14 WBC 27.8 H RBC 4.29 Hgb 13.5 Hct 41.6 MCV 97.0 MCH 31.5 MCHC 32.5 RDW 14.1 Plt Count 274 MPV 10.0 Sodium 134 L Potassium 3.9 Chloride 101 Carbon Dioxide 28 Anion Gap 5 BUN 9 D Creatinine 0.61 L Estim Creat Clear Calc Not Reportable Estimated GFR > 60 Glucose 131 H Calcium 9.0 Total Bilirubin 4.4 H AST 487 H ALT 914 H Alkaline Phosphatase 283 H Total Protein 6.9 Albumin 3.7 Lipase 26 Blood Type O Positive Antibody Screen Negative
--- NOTE | 2025-07-26 15:30 | WPDHPUPDATE1 ---
History and Physical Update Update Date/Time: 07/26/25 15:30 History and Physical has been reviewed, including an updated exam of the patient. There are NO changes in the patient's condition. Risks, benefits, and alternatives have been discussed and questions answered. Patient agrees to proceed with procedure.
[2025-07-26] MEDS: LACTATED RINGERS 1,000 ML 30 ML IV CONT ×2 (18:44→20:58)
[2025-07-26] MEDS: ACETAMINOPHEN 500 MG TABLET 1000 MG PO (19:02)
[2025-07-26] MEDS: KETOROLAC 15 MG/ML VIAL (*BKC) IV PUSH (19:02)
--- NOTE | 2025-07-26 19:37 | P.PNAN_ITS ---
Anes - Initial Pre Proc Eval Procedure: Operation Date: 07/26/25 16:30 Proposed Procedures p Laparoscopic Cholecystectomy, Possible Open - Zach Peterson DO Date/Time: 07/26/25 19:37 Surgeon: Alba Valdez DO Pre Op Diagnosis: Abdominal pain Patient Data Age: 55 Gender: F Height: Weight: 91.26 kg Last Vital Signs Temp 36.8 C 07/26/25 14:00 Pulse 80 07/26/25 14:00 Resp 20 07/26/25 14:00 BP 127/69 07/26/25 14:00 Pulse Ox 93 07/26/25 14:00 O2 Del Method Room Air 07/26/25 08:00 Allergies Allergy/AdvReac Type Severity Reaction Status Date / Time codeine Allergy Unknown Vomiting Verified 07/25/25 02:52 Home Medications ?Medication ?Instructions ?Recorded ?Confirmed ?Type estradiol 2 mg tablet 2 mg PO DAILY #90 tabs 01/0207/25/25 Rx sertraline 100 mg tablet 100 mg PO DAILY #90 tabs 07/25/25 Rx acetaminophen 500 mg tablet 1,000 mg (2 x 500 mg) PO Q 6H PRN 07/12/25 07/25/25 Rx (Tylenol Extra Strength) pain #50 tabs cyclobenzaprine 5 mg tablet 5 mg PO HS PRN muscle spas m 07/25/25 07/25/25 History famotidine 20 mg tablet 20 mg PO HS PRN indigestion 07/25/25 07/25/25 History oxycodone 5 mg tablet 5 mg PO HS PRN pain 07/25/25 07/25/25 History Laboratory Tests 07/26/25 05:14 WBC 27.8 H K/mm3 (4.5-10.0) RBC 4.29 M/mm3 (4.2-5.4) Hgb 13.5 g/dL (12.0-15.0) Hct 41.6 % (37.0-47.0) MCV 97.0 fl (80-100) MCH 31.5 pg (26-34) MCHC 32.5 g/dl (32-36) RDW 14.1 % (11.5-14.5) Plt Count 274 k/mm3 (150-375) MPV 10.0 fl (7.4-10.4) Sodium 134 L mmol/L (137-145) Potassium 3.9 mmol/L (3.4-5.0) Chloride 101 mmol/L (98-107) Carbon Dioxide 28 mmol/L (22-30) Anion Gap 5 mmol/L (4-12) BUN 9 D mg/dL (7-17) Creatinine 0.61 L mg/dL (0.7-1.0) Estim Creat Clear Calc Not Reportable Estimated GFR > 60 (59 - ) Glucose 131 H mg/dL (65-110) Calcium 9.0 mg/dL (8.4-10.2) Total Bilirubin 4.4 H mg/dL (0.2-1.3) AST 487 H U/L (14-36) ALT 914 H U/L (6-35) Alkaline Phosphatase 283 H U/L (38-126) Total Protein 6.9 g/dL (6.3-8.2) Albumin 3.7 g/dL (3.5-5.1) Lipase 26 U/L (23-300) Blood Type O Positive Antibody Screen Negative Patient hx anesthesia problems: none Family hx anesthesia problems: none Results Review: All pre-operative results and documents have been reviewed as part of the pre-operative evaluation. [facility] Past Medical History Medical History Cervical spine arthritis with nerve pain Neuralgia Obesity Colon cancer screening Radiculopathy Abnormality of left breast on screening mammogram Screening mammogram, encounter for BMI over 35 BMI 34.0-34.9,adult Body mass index (BMI) of 35.0 to 35.9 in adult Mixed hyperlipidemia Surgical History Surgical History S/P total abdominal hysterectomy (12/01/07) ANSELMO - leiomyoma History of colposcopy (10/22/20) colpo / BX - squamous atypia Delivery by section (04/09/00) rpt c/s with Tubal ligation History of gynecological procedure (~1997) laparoscopic/removal of adhesion Delivery by section (04/24/97) Primary C/S - nonreassuring heart rate strip, cord around neck x 1, pelvic endometriosis History of cryosurgery (~1992) H/O right breast biopsy (~2017) Benign Family History Family History Father Hypertension Malignant neoplasm of prostate Mother Hypertension Family history of osteoarthritis Sibling COVID-19 Social History Social History Smoking status: Former smoker Tobacco type: cigarettes Second hand tobacco smoke exposure: No Alcohol intake: current Drinks per week: 3 Substance use: never Substance use type: does not use Lack of Transportation: No Lack of Food: Never True Current Housing: I Have Housing Concerned About Future Housing: No Difficulty Paying Gas/Electric Bills: No Difficulty Paying for Meds: No Currently Unemployed: No Education: High School Diploma/GED Difficulty w/ Childcare or Family Care: No Living arrangements: with family Additional living arrangements comments: Occupation/Education: occupation Additional occupation/education comments: casework manager Gender identity (if verbalized by the patient): Female Sexual Orientation (if Verbalized by the Patient): Straight or Heterosexual Spiritual care concerns: No Anes - Eval Final PreProcedure Day of Procedure 07/26/25 19:37 Patient weight: obese Heart: regular rate and rhythm Lungs: clear to auscultation Airway: Mallampati scale class II Neurological: alert and oriented Last oral intake: >/= 8 hours ASA classification: III Emergent: no Anesthetic plan: proceed Anesthesia type and monitoring: general ETT and standard monitoring Results Review: All pre-operative results and documents have been reviewed as part of the pre- operative evaluation. Informed Consent: The patient's anesthetic plan and its attendant risks and benefits were discussed with the patient/family/POA. Questions were solicited and answers provided to the satisfaction of the patient/family/POA.
--- NOTE | 2025-07-26 20:14 | S_PTH ---
PATIENT: Cady Chavez LOC: [id number] U#:[id number] AGE/SX: 55/F ROOM: 349 RE07/26/[address]: Valerie Winn APRN : 1970 BED: 01 DIS: 07/28/2025 SPEC #: [id number] RECD: 07/27/25 09:03 STATUS: KARO REOlivia #: [id number] STACIA: 07/26/25 20:[address]: Zach Peterson DEPT: [facility] Surgical RECD BY: Lorie Caraballo ENTERED: 07/27/25 09:04 SP TYPE: Surgical OTHR DR: DO Mukesh Coombs MD Francisco M. Tagle, MD Tissues: A - Gallbladder Procedures: Hematoxylin and Eosin Stain Gross and Microscopic Level 3
[2025-07-26] MEDS: BUPIVACAINE/EPINEPHRINE 0.5% 50 ML VIAL 30 ML INFILTRATE (20:16)
--- NOTE | 2025-07-26 21:19 | W.PM.PROC2 ---
Procedure Note - Detailed Date of Procedure 07/26/25 Pre-op Diagnosis Acute calculous cholecystitis, elevated liver enzymes Post-op Diagnosis Same ( acute gangrenous calculous cholecystitis with choledocholithiasis) Procedure Performed Laparoscopic cholecystectomy with intraoperative cholangiogram Surgeon Zach Peterson, Anesthesia General and Local (0.5% bupivacaine) Indications this is a 55-year-old woman who presented to the emergency department 07/24/2025 with complaints of right upper quadrant abdominal pain. She had symptoms like this about 2 weeks ago and was in the emergency department but was able to be discharged home. She had a CT in the emergency department which showed a distended gallbladder but no other findings of cholelithiasis or cholecystitis. Her white blood count was 13.9 and liver enzymes were elevated but bilirubin was normal. She then had a gallbladder ultrasound which showed evidence of cholelithiasis and positive sonographic Peña sign but no gallbladder wall thickening or pericholecystic fluid. Common bile duct was normal measuring 4 mm. Discussions were then made with the patient about treatment options and decision was made to proceed with laparoscopic cholecystectomy. 07/26/2025 her liver enzymes had risen further and bilirubin was now 4.4 the and decision was made to proceed with intraoperative cholangiogram as well. Findings Laparoscopic cholecystectomy with intraoperative cholangiogram was performed. The patient was found to have a distended gallbladder with evidence of gangrenous cholecystitis. There were pericholecystic adhesions and multiple stones within the gallbladder. The cystic duct appeared to taper to normal size. Intraoperative cholangiogram was obtained using Omnipaque contrast and there appeared to be evidence of a dilated common bile duct and multiple filling defects in the distal common bile duct causing obstruction. The gallbladder was removed and sent to the lab for pathology. The gallbladder fossa was irrigated with about 1 L of sterile saline. Description of Procedure Procedure as well as risks, benefits, and alternatives were discussed with patient. Written consent was obtained and placed in chart prior to procedure. The patient was brought back to surgical suite. Patient was placed in supine position on operating table. Time-out was done to confirm patient and procedure. Patient was then intubated by the anesthesia department. Abdomen was prepped and draped in sterile fashion using chlorhexidine prep. 0.5% bupivacaine with epinephrine was infiltrated at each site of incision. A 5 millimeter incision was made near the umbilicus, and a 5 millimeter Optiview trocar was advanced through the abdominal layers under direct visualization. Once inside the abdominal cavity, carbon dioxide was insufflated to create a pneumoperitoneum. The camera was inserted and the abdomen was inspected. No immediate abnormalities were identified. The patient was placed in reverse Trendelenburg position and rotated slightly to the left. An 11 millimeter incision was made in the subxiphoid region, and an 11 millimeter trocar was inserted under direct visualization. Two 5 millimeter incisions were made in the right upper quadrant, and two 5 millimeter trocars were inserted under direct visualization. The gallbladder was identified and grasped at the fundus and retracted superiorly. It was then grasped at the infundibulum retracted laterally. Careful dissection around the neck of the gallbladder was performed using blunt dissection with a [place] grasper and hook electrocautery. The cystic duct was identified, and a window was created behind it. The cystic artery was also identified and a window was created behind it. The critical view of safety was identified, visualizing the cystic duct running directly into the neck of the gallbladder, and the cystic artery running directly into the wall of the gallbladder. A 5 millimeter clip director of academic support was then used to place 2 clips proximally and 1 clip distally on the cystic artery. It was then transected using endoscopic scissors. The Siddiqi clamp was placed across the distal neck of the gallbladder and the Siddiqi cholangiocatheter was advanced into the cystic duct. The catheter flushed with saline with these. The patient was then flattened out in bed and fluoroscopy was used to obtain an intraoperative cholangiogram using Omnipaque contrast. The images were sent to Radiology for interpretation. The patient was then placed back in reverse Trendelenburg position. A 5 mm clip director of academic support was used to place 2 clips proximally and 1 clip distally on the cystic duct. It was then transected using endoscopic scissors. Once safely away from the yrn hepatitis, the gallbladder was dissected free from the liver bed using hook electrocautery. Hemostasis was achieved along the way. The gallbladder was removed completely and then removed through the subxiphoid port. The liver bed was then inspected. Hemostasis appeared adequate, and our clips appeared secure. The area was gently irrigated with sterile saline. No other abnormalities were seen. The patient was flattened out in bed, and 1 final inspection was made around the abdominal cavity. The subxiphoid port was removed, and a Keegan Ozzy cone was used to approximate the fascia with an 0-Vicryl simple interrupted suture. The remaining ports were then removed under direct visualization, the camera was removed, and the pneumoperitoneum was released. The skin of the incisions was approximated using 4-0 Monocryl subcuticular sutures. Exofin glue was applied on top. The patient was then awakened from anesthesia, extubated, and transferred to recovery. Estimated Blood Loss 20 Pathology Yes (Gallbladder) Complications No immediate complications Condition Stable Disposition Floor [facility] Billing Surgery - Charge Forward: Surgery Billing
[2025-07-27] VITALS (13 sets, daily range): BP systolic 124–163; BP diastolic 62–78; PULSE 65–92; RESP 14–24; TEMP 36.2–36.8; O2SAT 92–100; BMI 34.7
--- NOTE | 2025-07-27 00:36 | PC.NURSE ---
Patient returned from sx with no complaints of pain. Able to self pivot from stretcher to bed. at bedside.
[2025-07-27] MEDS: PIPERACILLIN/TAZOBACTAM SOD 3.375 GM in SODIUM CHLORIDE 0.9% IV 50 ML 100 ML IVPB ×3 (05:35→17:45)
[2025-07-27] MEDS: HYDROmorphone HCL INJ (*CRX) 1 MG/ML SYR IV PUSH ×4 (05:36→22:10)
[2025-07-27 05:39] LABS: Hematocrit 42.6 % (37.0-47.0); Hemoglobin 14.1 g/dL (12.0-15.0); Mean Corpuscular HGB Conc 33.1 g/dl (32-36); Mean Corpuscular Hemoglobin 31.8 pg (26-34); Mean Corpuscular Volume 96.2 fl (80-100); Platelet Count Result 262 k/mm3 (150-375); Red Blood Count 4.43 M/mm3 (4.2-5.4); White Blood Count 24.4 K/mm3 (4.5-10.0)
[2025-07-27 06:23] LABS: Alanine Aminotransferase 568 U/L (6-35); Albumin Level 3.6 g/dL (3.5-5.1); Alkaline Phosphatase 273 U/L (38-126); Anion Gap 6 mmol/L (4-12); Aspartate Amino Transferase 178 U/L (14-36); Bilirubin,Total 4.6 mg/dL (0.2-1.3); Blood Urea Nitrogen 14 mg/dL (7-17); Calcium 9.3 mg/dL (8.4-10.2); Carbon Dioxide 27 mmol/L (22-30); Chloride 102 mmol/L (98-107); Estimated Glomerular Filt Rate > 60; Glucose 145 mg/dL (65-110); Potassium 3.9 mmol/L (3.4-5.0); Sodium 135 mmol/L (137-145); Total Protein 7.3 g/dL (6.3-8.2)
--- NOTE | 2025-07-27 07:47 | P.CONGI_ITS ---
Assessment and Plan Assessment and plan (1) Acute calculous cholecystitis: Code(s): K80.00 - Calculus of gallbladder with acute cholecystitis without obstruction Status: Acute (2) Choledocholithiasis: Code(s): K80.50 - Calculus of bile duct without cholangitis or cholecystitis without obstruction Status: Acute (3) Elevated LFTs: Code(s): R79.89 - Other specified abnormal findings of blood chemistry Status: Acute (4) Upper abdominal pain: Code(s): R10.10 - Upper abdominal pain, unspecified Status: Acute (5) Leukocytosis: Qualifiers: Leukocytosis type: unspecified Qualified Code(s): D72.829 - Elevated white blood cell count, unspecified Code(s): D72.829 - Elevated white blood cell count, unspecified Status: Acute (6) Fecal impaction of colon: Code(s): K56.41 - Fecal impaction Status: Acute Plan 1. Acute cholecystitis/choledocholithiasis/elevated LFT/leukocytosis/RUQ abdominal pain/abnormal cholangiogram: CT Jul 12 was normal but at that time labs showed her lipase was 1144. Repeat CT 07/24/2025 showed definitely distended gallbladder. No calcified stones. Mildly dilated intrahepatic and extrahepatic bile ducts. Ultrasound worrisome for acute cholecystitis. Since admission patient with elevated WBC's and LFT's: WBC 14-->24.4, Bilirubin 0.9-->4.6, AST 381-->178, ALT 221-->568, Alk Phos 150--> 273 and lipase 26. Patient had a laparoscopic cholecystectomy performed yesterday by Dr. Peterson. Intraoperative cholangiogram showed findings suggestive of choledocholithiasis causing obstruction of the distal bile duct. Multiple well circumscribed filling defects are noted in the distal common bile duct obstructing the distal bile duct and contrast did not flow into the duodenum. RUQ pain has improved but not resolved since cholecystectomy. She states that the right upper quadrant pain is sharp in nature and is worse when she takes a deep breath or moves. * ERCP today * further recommendations for follow ERCP * continue to trend LFT's and WBC's * Risks and benefits of ERCP were reviewed with the patient in her feet including 10% risk postoperative pancreatitis. Patient verbalized understanding and agrees to proceed with ERCP. Monitor pancreatic enzymes following endoscopic evaluation 2. Constipation/fecal impaction: Patient has never had a colonoscopy but had a negative Cologuard this summer. Family history negative for CRC or IBD. Patient states that prior to admission she was having 1-2 bowel movements daily that were formed and not urgent. She has not had a bowel movement since admission. CT showed fecal impaction of the proximal colon. Patient is denying any lower abdominal pain, bloating, or rectal discomfort. * once ERCP complete, give on soap therese enema * following cleanout start Miralax 1-2 times daily and adjust dosing frequency according to symptoms and response Thank you very much for allowing me to share in the care of this very nice patient. This report may have been done utilizing a voice recognition system. Attempts have been made to correct errors. However, there may be uncorrected grammatical, spelling, and recognition errors present. GI Consult Note Consult date/time: 07/27/25 07:47 Reason for consult: Choledocholithiasis HPI: Cady Chavez is a 55 year old female with PMSH of HLD, obesity, hysterectomy, x 2, tubal ligation and recent CCX. She had initially presented to the emergency room on the with complaints of abdominal pain. She states that prior to her ER visit she was told that she had a distended gallbladder and was scheduled to see general surgery outpatient on the . Patient had a lap reva performed 07/26/[address] Peterson. GI has been consulted for choledocholithiasis. Patient was seen with and daughter at bedside throughout the entire visit. Patient states that she has been experiencing right upper quadrant abdominal pain that she describes is a severe sharp pain that has partially improved since her cholecystectomy but has not resolved. His right upper quadrant pain increases with deep breaths or moving. She has occasional reflux and states that she takes Tums on average 2 times a week which helps resolve symptoms. She denies any nausea, vomiting, bloating, odynophagia, dysphagia, regurgitation, early satiety, appetite or weight loss. She typically has 1-2 bowel movements daily that are formed non urgent but denies any bowel movements since admission and imaging showed possible fecal impaction. She denies any diarrhea, hematochezia, or melena. She denies any alcohol, tobacco or marijuana use. Family history negative for CRC or IBD. Patient uses Goody Powder as needed along with Tylenol. ENDOSCOPY HISTORY: Patient has never had an EGD or colonoscopy but had a negative Cologuard the summer LABS AND STOOL STUDIES: Labs 07/27/2025: WBC 24, Hgb 14, Hct 43, MCV 96, platelets 262 Sodium 135, potassium 3.9, BUN 14, creatinine 0.72, GFR >60, calcium 9.3 Total bilirubin 4.6, AST 178, ALT 568, Alkaline Phos 273, albumin 3.6 Labs 07/24/2025: WBC 14, Hgb 13, Hct 39, MCV 94, platelets 301, INR 1.0 Sodium 135, potassium 3.6, BUN 18, creatinine 0.56, GFR >60, calcium 9.0 Total bilirubin 0.9, AST 381, ALT 221, Alkaline Phos 150, albumin 4.0, lipase 53 IMAGING: Intraoperative cholangiogram 07/26/2025: FINDINGS: Moderately dilated extrahepatic bile ducts are noted consistent with CT findings. Multiple well-circumscribed filling defects are noted in the distal common bile duct obstructing the distal bile duct. Contrast is not flowing into the duodenum. Findings are suggestive of distal choledocholithiasis, obstructing the distal bile duct. IMPRESSION: 1. Findings suggestive of choledocholithiasis causing obstruction of distal bile duct. Findings were conveyed to the surgeon by telephone call. Abdominal Ultrasound 07/25/2025: Findings: Liver: Enlarged. Echogenic. No intrahepatic biliary ductal dilatation. Normal hepatopedal flow main portal vein. Common Duct: Normal caliber. 4 mm. Gallbladder: Distended. Stones. No wall thickening. No pericholecystic fluid. Positive sonographic Peña's sign per technologist report. Pancreas: Unremarkable. IMPRESSION: 1. Worrisome for acute cholecystitis. If clinical ambiguity, consider HIDA scan. CT abd/pelvis w/contrast 07/24/2025: IMPRESSION: 1. Definitely distended gallbladder. No calcified stones. Mildly dilated intrahepatic and extrahepatic bile ducts. Please correlate with clinical findings and lab results including liver function. Additional evaluation of the gallbladder with ultrasound and or hepatobiliary nuclear scan is suggested. 2. Fecal impaction of proximal colon. 3 tiny nonobstructing left renal calculus. Review of Systems 2 Constitutional: Constitutional: Reports as per HPI ENT: Reports as per HPI Cardiovascular: Cardiovascular: Reports as per HPI, Denies chest pain and Denies dyspnea Respiratory: Respiratory: Denies cough and Denies dyspnea Comments: RUQ pain increases with deep breaths Gastrointestinal: Gastrointestinal: Reports as per HPI Musculoskeletal: Musculoskeletal: Reports as per HPI Integumentary/Breasts: Skin/Breast: Reports as per HPI Psychiatric: Psychiatric: Reports as per HPI Endocrine: Endocrine: Reports no additional endocrine complaints Hematologic/Lymphatic: Hematologic/Lymphatic: Reports no additional hematologic/lymphatic complaints [facility] Past Medical History Medical History Cervical spine arthritis with nerve pain Neuralgia Obesity Colon cancer screening Radiculopathy Abnormality of left breast on screening mammogram Screening mammogram, encounter for BMI over 35 BMI 34.0-34.9,adult Body mass index (BMI) of 35.0 to 35.9 in adult Mixed hyperlipidemia Surgical History Surgical History S/P total abdominal hysterectomy (12/01/07) ANSELMO - leiomyoma History of colposcopy (10/22/20) colpo / BX - squamous atypia Delivery by section (04/09/00) rpt c/s with Tubal ligation History of gynecological procedure (~1997) laparoscopic/removal of adhesion Delivery by section (04/24/97) Primary C/S - nonreassuring heart rate strip, cord around neck x 1, pelvic endometriosis History of cryosurgery (~1992) H/O right breast biopsy (~2016) Benign Family History Family History Father Hypertension Malignant neoplasm of prostate Mother Hypertension Family history of osteoarthritis Sibling COVID-19 Social History Social History Smoking status: Former smoker Tobacco type: cigarettes Second hand tobacco smoke exposure: No Alcohol intake: current Drinks per week: 3 Substance use: never Substance use type: does not use Lack of Transportation: No Lack of Food: Never True Current Housing: I Have Housing Concerned About Future Housing: No Difficulty Paying Gas/Electric Bills: No Difficulty Paying for Meds: No Currently Unemployed: No Education: High School Diploma/GED Difficulty w/ Childcare or Family Care: No Living arrangements: with family Additional living arrangements comments: Occupation/Education: occupation 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 Gender identity (if verbalized by the patient): Female Sexual Orientation (if Verbalized by the Patient): Straight or Heterosexual Spiritual care concerns: No Meds Home Medications and Allergies Home Medications ?Medication ?Instructions ?Recorded ?Confirmed ?Type estradiol 2 mg tablet 2 mg PO DAILY #90 tabs 01/0207/25/25 Rx sertraline 100 mg tablet 100 mg PO DAILY #90 tabs 07/25/25 Rx acetaminophen 500 mg tablet 1,000 mg (2 x 500 mg) PO Q 6H PRN 07/12/25 07/25/25 Rx (Tylenol Extra Strength) pain #50 tabs cyclobenzaprine 5 mg tablet 5 mg PO HS PRN muscle spas m 07/25/25 07/25/25 History famotidine 20 mg tablet 20 mg PO HS PRN indigestion 07/25/25 07/25/25 History oxycodone 5 mg tablet 5 mg PO HS PRN pain 07/25/25 07/25/25 History Allergies Allergy/AdvReac Type Severity Reaction Status Date / Time codeine Allergy Unknown Vomiting Verified 07/25/25 02:52 Vital Signs Vital Signs - 24 hr 07/26/25 08:00 07/26/25 14:00 07/26/25 20:58 Temperature 98.2 F 97.4 F L Pulse Rate 80 80 Respiratory Rate 20 14 Blood Pressure 127/69 89/41 L Pulse Oximetry 93 97 Oxygen Delivery Room Air Simple Face Mask Oxygen Flow Rate 10 07/26/25 21:00 07/26/25 21:10 07/26/25 21:15 Temperature Pulse Rate 76 72 72 Respiratory Rate 13 15 16 Blood Pressure 98/48 L 100/62 118/61 Pulse Oximetry 100 100 100 Oxygen Delivery Simple Face Mask Simple Face Mask Room Air Oxygen Flow Rate 10 10 07/26/25 21:30 07/26/25 21:49 07/26/25 21:52 Temperature 97.9 F Pulse Rate 78 74 Respiratory Rate 17 18 Blood Pressure 127/65 139/73 Pulse Oximetry 97 95 Oxygen Delivery Room Air Room Air Oxygen Flow Rate 07/26/25 22:08 07/26/25 22:43 07/26/25 23:53 Temperature 97.8 F 98.6 F 98.4 F Pulse Rate 81 76 73 Respiratory Rate 18 16 18 Blood Pressure 138/70 139/74 145/72 H Pulse Oximetry 94 94 94 Oxygen Delivery Oxygen Flow Rate 07/27/25 03:19 Temperature 97.7 F Pulse Rate 70 Respiratory Rate 16 Blood Pressure 134/72 Pulse Oximetry 96 Oxygen Delivery Oxygen Flow Rate Exam 2 Const: General: cooperative, healthy appearing, comfortable, no acute distress and well developed Orientation/consciousness: oriented to person, oriented to place, oriented to time and patient oriented x3 HENMT: Head: normal to inspection, normocephalic and atraumatic Mouth: Yes Normal oral and palatal mucosa present and Yes moist mucous membranes Eyes: General: appearance normal, both eyes and all related structures C onjunctivae: conjunctivae normal Sclera: sclerae normal Pupils: Equal, round and reactive pupils present Neck: Neck: normal visual inspection Chest: Chest palpation & inspection: normal inspection of the chest Resp: Effort & Inspection: normal respiratory effort and able to speak in complete sentences Auscultation: clear to auscultation bilaterally Cardio: Jugular venous distension: no JVD Rate: regular rate Rhythm: r egular rhythm Heart sounds: S1 normal heart sound present and S2 normal heart sound present GI: Inspection: normal to inspection GI Palp: Yes Soft to palpation, Yes Tenderness to palpation present (GI) (RUQ), No Guarding due to palpation present (GI) and Yes No hepatosplenomegaly present Auscultation: normal bowel sounds Rectal Exam: deferred Skin: General skin exam: normal color and no rashes or lesions noted Neuro: General: oriented to person, oriented to place, oriented to time and patient oriented x3 Cranial nerves: Yes Equal, round and reactive pupils present Speech: normal speech Extrem: General: normal to inspection and no clubbing, cyanosis or edema Psych: Appearance: grossly normal and well kempt Affect: normal affect Results Labs 07/27/25 05:33 07/27/25 05:33 Labs: Short CBC 07/27/25 Range/Units 05:33 WBC 24.4 H (4.5-10.0) K/mm3 Hgb 14.1 (12.0-15.0) g/dL Hct 42.6 (37.0-47.0) % Plt Count 262 (150-375) k/mm3 BMP 07/27/25 05:33 Sodium 135 L Potassium 3.9 Chloride 102 Carbon Dioxide 27 BUN 14 D Creatinine 0.72 Glucose 145 H Calcium 9.3 Liver Function 07/27/25 Range/Units 05:33 Total Bilirubin 4.6 H (0.2-1.3) mg/dL AST 178 H (14-36) U/L ALT 568 H (6-35) U/L Alkaline Phosphatase 273 H (38-126) U/L Albumin 3.6 (3.5-5.1) g/dL
[2025-07-27] MEDS: oxyCODONE HCL (*CRX) 5 MG TAB IR 10 MG PO (07:57)
[2025-07-27] MEDS: ONDANSETRON INJ 4 MG/2 ML VIAL IV PUSH (09:52)
--- NOTE | 2025-07-27 10:39 | PM.IMPN2 ---
Assessment and Plan Assessment and Plan (1) Biliary colic: Code(s): K80.50 - Calculus of bile duct without cholangitis or cholecystitis without obstruction Status: Acute Assessment and Plan: CT showed evidence of a distended gallbladder. RUQ US showed gallbladder distention with cholelithiasis. WBC initally yesterday was 27.8 and is now down to 24.4-- Zosyn 3.375 gm continued Patient is NPO laparoscopic cholecystectomy preformed yesterday- patient is recovering well ERCP scheduled for today for suspicious of choledocholithiasis Will defer to surgery (2) Fecal impaction of colon: Code(s): K56.41 - Fecal impaction Status: Acute Assessment and Plan: Fecal impaction of proximal colon Last BM was 07/25 Patient asymptomatic - considering [facility] GI is considering soap therese enema after ERCP Will monitor for defecation status Subjective Date/time seen: 07/27/25 08:15 Interval history: 55 year old female with no significant past medical history presenting with upper abdominal pain that began in yesterday. She states that she has been seen for this before reporting that she was told she has an enlarged gallbladder and is due to see a general surgeon August 01. 07/27 Patient reports she is feeling well over all after the removal of her gall bladder. She reports no fever, chills, headaches, or muscle aches. She reports some intermitted stomach pain, but contributes it to gas. Patient denies overall pain. Patient reports she talked to the GI doctor and knows that she will be getting possible stones removed. Patient denies any concerns for today. Review of Systems Review of Systems: All systems reviewed & are unremarkable except as noted in HPI and below Exam Const: General: comfortable and no acute distress Eyes: General: appearance normal, both eyes and all related structures Pupils: Equal, round and reactive pupils present Neck: Neck: supple and no JVD Thyroid: thyroid normal Resp: Effort & Inspection: normal respiratory effort Auscultation: clear to auscultation bilaterally Cardio: Rate: regular rate Rhythm: regular rhythm GI: GI Palp: Yes Soft to palpation and Yes Tenderness to palpation present (GI) (RLQ) Auscultation: Hypoactive bowel sounds present Skin: General skin exam: normal color Neuro: General: gait normal and deep tendon reflexes 2+ bilaterally Speech: normal speech Motor exam (neuro): 5/5 motor strength present throughout Psych: Mental Status: mental status grossly normal Affect: normal affect Objective Data Vital Signs Vital Signs: Vital Signs - 24 hr 07/26/25 14:00 07/26/25 20:58 07/26/25 21:00 Temperature 98.2 F 97.4 F L Pulse Rate 80 80 76 Respiratory Rate 20 14 13 Blood Pressure 127/69 89/41 L 98/48 L Pulse Oximetry 93 97 100 Oxygen Delivery Simple Face Mask Simple Face Mask Oxygen Flow Rate 10 10 07/26/25 21:10 07/26/25 21:15 07/26/25 21:30 Temperature Pulse Rate 72 72 78 Respiratory Rate 15 16 17 Blood Pressure 100/62 118/61 127/65 Pulse Oximetry 100 100 97 Oxygen Delivery Simple Face Mask Room Air Room Air Oxygen Flow Rate 10 07/26/25 21:49 07/26/25 21:52 07/26/25 22:08 Temperature 97.9 F 97.8 F Pulse Rate 74 81 Respiratory Rate 18 18 Blood Pressure 139/73 138/70 Pulse Oximetry 95 94 Oxygen Delivery Room Air Oxygen Flow Rate 07/26/25 22:43 07/26/25 23:53 07/27/25 03:19 Temperature 98.6 F 98.4 F 97.7 F Pulse Rate 76 73 70 Respiratory Rate 16 18 16 Blood Pressure 139/74 145/72 H 134/72 Pulse Oximetry 94 94 96 Oxygen Delivery Oxygen Flow Rate 07/27/25 07:19 Temperature Pulse Rate 79 Respiratory Rate 16 Blood Pressure 131/69 Pulse Oximetry 97 Oxygen Delivery Oxygen Flow Rate Intake/Output Intake/Output: Intake & Output 07/24/25 07/25/25 07/26/25 07/27/25 23:59 23:59 23:59 23:59 Intake Total 1400 2774.3 400 Balance 1400 2774.3 400 Meds/Results Medications: Active Medications Generic Name Dose Route Start Last Admin Trade Name Freq PRN Reason Stop Dose Admin Diphenhydramine HCl 25 mg 07/26/25 21:34 Diphenhydramine Hcl Inj 50 Mg/Ml Vial IV PUSH Q6H PRN Itching Hydromorphone HCl 1 mg 07/26/25 21:34 07/27/25 09:43 Hydromorphone Hcl Inj (*Crx) 1 Mg/Ml Syr IV PUSH 1 mg Q2H PRN Administration Breakthrough Pain Rated 7-10 or NPO Hydromorphone HCl 0.5 mg 07/26/25 21:34 Hydromorphone Hcl Inj (*Crx) 1 Mg/Ml Syr IV PUSH Q2H PRN Breakthrough Pain Rated 4-6 or NPO Lactated Ringer's 1,000 mls @ 100 mls/hr 07/25/25 19:15 07/26/25 23:56 Lr - Lactated Ringers Iv IV CONT 100 mls/hr .Q10H AMALIA Administration Piperacillin Sod/Tazobactam 50 mls @ 100 mls/hr 07/25/25 19:15 07/27/25 06:05 Sod 3.375 gm/ Sodium Chloride IVPB Infused Q6HR AMALIA Infusion Ibuprofen 800 mg in 200 mls @ 400 mls/hr 07/26/25 21:34 Caldolor 800 Mg/200 Ml IVPB Q6H PRN Breakthrough Pain Rated 1-3 or NPO Naloxone HCl 0.1 mg 07/26/25 21:34 Naloxone Hcl 0.4 Mg/Ml Vial IV PUSH Q2M PRN Opiate Reversal Ondansetron HCl 4 mg 07/24/25 23:06 07/27/25 09:52 Ondansetron Inj 4 Mg/2 Ml Vial IV PUSH 4 mg Q4H PRN Administration Nausea Oxycodone HCl 5 mg 07/26/25 21:34 Oxycodone Hcl (*Crx) 5 Mg Tab Ir PO Q4H PRN Pain Rated 4-6 Oxycodone HCl 10 mg 07/26/25 21:34 07/27/25 07:57 Oxycodone Hcl (*Crx) 5 Mg Tab Ir PO 10 mg Q4H PRN Administration Pain Rated 7-10 Radiology Results: ITS Impressions Abdomen/Pelvis CT 07/24/25 21:42 IMPRESSION: 1. Definitely distended gallbladder. No calcified stones. Mildly dilated intrahepatic and extrahepatic bile ducts. Please correlate with clinical findings and lab results including liver function. Additional evaluation of the gallbladder with ultrasound and or hepatobiliary nuclear scan is suggested. 2. Fecal impaction of proximal colon. 3 tiny nonobstructing left renal calculus. Abdomen Ultrasound 07/25/25 07:45 IMPRESSION: 1. Worrisome for acute cholecystitis. If clinical ambiguity, consider HIDA scan. Cholangiogram,Operative 07/26/25 20:43 IMPRESSION: 1. Findings suggestive of choledocholithiasis causing obstruction of distal bile duct. Findings were conveyed to the surgeon by telephone call. Labs Labs: Laboratory Results - last 24 hr 07/27/25 05:33 WBC 24.4 H RBC 4.43 Hgb 14.1 Hct 42.6 MCV 96.2 MCH 31.8 MCHC 33.1 RDW 14.3 Plt Count 262 MPV 9.9 Sodium 135 L Potassium 3.9 Chloride 102 Carbon Dioxide 27 Anion Gap 6 BUN 14 D Creatinine 0.72 Estim Creat Clear Calc Not Reportable Estimated GFR > 60 Glucose 145 H Calcium 9.3 Total Bilirubin 4.6 H AST 178 H ALT 568 H Alkaline Phosphatase 273 H Total Protein 7.3 Albumin 3.6 Quality VTE Prophylaxis VTE prophylaxis: mechanical ordered
--- NOTE | 2025-07-27 10:41 | WPDANESPN ---
Anes - Prog Note Post-Op Date/Time: 07/27/25 10:41 Cardiovascular status: normal Respiratory status: normal Airway patency: baseline Mental status: baseline Post-Op hydration status: normal Vital Signs: Last Vital Signs Temp 36.5 C 07/27/25 03:19 Pulse 79 07/27/25 07:19 Resp 16 07/27/25 07:19 BP 131/69 07/27/25 07:19 Pulse Ox 97 07/27/25 07:19 O2 Del Method Room Air 07/26/25 21:49 O2 Flow Rate 10 07/26/25 21:10 Pain Score (VAS): 2 I/O: Intake & Output 07/26/25 07/27/25 07/27/25 23:59 07:59 15:59 Intake Total 1656 400 Balance 1656 400 Laboratory Tests 07/27/25 05:33 07/27/25 05:33 07/27/25 05:33 WBC 24.4 H RBC 4.43 Hgb 14.1 Hct 42.6 MCV 96.2 MCH 31.8 MCHC 33.1 RDW 14.3 Plt Count 262 MPV 9.9 Sodium 135 L Potassium 3.9 Chloride 102 Carbon Dioxide 27 Anion Gap 6 BUN 14 D Creatinine 0.72 Estim Creat Clear Calc Not Reportable Estimated GFR > 60 Glucose 145 H Calcium 9.3 Total Bilirubin 4.6 H AST 178 H ALT 568 H Alkaline Phosphatase 273 H Total Protein 7.3 Albumin 3.6 Patient Feedback: Patient satisfied with anesthetic care.
[2025-07-27] MEDS: LACTATED RINGERS 1,000 ML 100 ML IV CONT (11:32)
--- NOTE | 2025-07-27 12:37 | P.PNGS_ITS ---
Progress Note: A&P Assessment and Plan (1) Acute calculous cholecystitis: Code(s): K80.00 - Calculus of gallbladder with acute cholecystitis without obstruction Status: Acute Assessment and Plan: * Pod 1 status post laparoscopic appendectomy with intraoperative cholangiogram. Gallbladder was removed successfully although gangrenous. IOC demonstrated filling defects of the common bile duct causing obstruction. Patient will undergo ERCP with GI team today. * WBC and bilirubin remain elevated. Expect to see decrease after ERCP. Continue IV antibiotics. (2) Hyperbilirubinemia: Code(s): E80.6 - Other disorders of bilirubin metabolism Status: Acute (3) Transaminitis: Code(s): R74.01 - Elevation of levels of liver transaminase levels Status: Acute Plan Discussed patient's case and plan of care with Dr. Peterson. Subjective Subjective Date/Time Seen: 07/27/25 12:37 Post Op day: 1 ( Laparoscopic cholecystectomy with intraoperative cholangiogram) Patient reports: still having pain, no flatus, no bowel movement and afebrile Interval history: patient is still having right upper quadrant pain today. Tolerated surgery well, but intraoperative cholangiogram did demonstrate evidence of a dilated common bile duct and multiple filling defects causing obstruction. WBC remains elevated at 24.4. Bilirubin still elevated at 4.6. AST/ ALT and ALP all improved from yesterday. Exam GI: Inspection: non-distended GI Palp: Yes Soft to palpation, Yes Tenderne ss to palpation present (GI) ( Right upper quadrant) and No Guarding due to palpation present (GI) Auscultation: abnormal bowel sounds ( hypoactive) Other: Incisions are clean and dry with glue intact. Skin: General skin exam: normal color and no rashes or lesions noted Neuro: Speech: normal speech Objective Data Vital Signs Vital Signs: Vital Signs - 24 hr 07/26/25 14:00 07/26/25 20:58 07/26/25 21:00 Temperature 98.2 F 97.4 F L Pulse Rate 80 80 76 Respiratory Rate 20 14 13 Blood Pressure 127/69 89/41 L 98/48 L Pulse Oximetry 93 97 100 Oxygen Delivery Simple Face Mask Simple Face Mask Oxygen Flow Rate 10 10 07/26/25 21:10 07/26/25 21:15 07/26/25 21:30 Temperature Pulse Rate 72 72 78 Respiratory Rate 15 16 17 Blood Pressure 100/62 118/61 127/65 Pulse Oximetry 100 100 97 Oxygen Delivery Simple Face Mask Room Air Room Air Oxygen Flow Rate 10 07/26/25 21:49 07/26/25 21:52 07/26/25 22:08 Temperature 97.9 F 97.8 F Pulse Rate 74 81 Respiratory Rate 18 18 Blood Pressure 139/73 138/70 Pulse Oximetry 95 94 Oxygen Delivery Room Air Oxygen Flow Rate 07/26/25 22:43 07/26/25 23:53 07/27/25 03:19 Temperature 98.6 F 98.4 F 97.7 F Pulse Rate 76 73 70 Respiratory Rate 16 18 16 Blood Pressure 139/74 145/72 H 134/72 Pulse Oximetry 94 94 96 Oxygen Delivery Oxygen Flow Rate 07/27/25 07:19 07/27/25 08:00 07/27/25 11:19 Temperature Pulse Rate 79 66 Respiratory Rate 16 Blood Pressure 131/69 145/66 H Pulse Oximetry 97 95 Oxygen Delivery Room Air Oxygen Flow Rate Intake/Output Intake/Output: Intake & Output 07/24/25 07/25/25 07/26/25 07/27/25 23:59 23:59 23:59 23:59 Intake Total 1400 2774.3 1450 Balance 1400 2774.3 1450 Meds/Results Medications: Active Medications Generic Name Dose Route Start Last Admin Trade Name Freq PRN Reason Stop Dose Admin Diphenhydramine HCl 25 mg 07/26/25 21:34 Diphenhydramine Hcl Inj 50 Mg/Ml Vial IV PUSH Q6H PRN Itching Hydromorphone HCl 1 mg 07/26/25 21:34 07/27/25 12:12 Hydromorphone Hcl Inj (*Crx) 1 Mg/Ml Syr IV PUSH 1 mg Q2H PRN Administration Breakthrough Pain Rated 7-10 or NPO Hydromorphone HCl 0.5 mg 07/26/25 21:34 Hydromorphone Hcl Inj (*Crx) 1 Mg/Ml Syr IV PUSH Q2H PRN Breakthrough Pain Rated 4-6 or NPO Lactated Ringer's 1,000 mls @ 100 mls/hr 07/25/25 19:15 07/27/25 11:32 Lr - Lactated Ringers Iv IV CONT 100 mls/hr .Q10H [facility] Administration Piperacillin Sod/Tazobactam 50 mls @ 100 mls/hr 07/25/25 19:15 07/27/25 12:15 Sod 3.375 gm/ Sodium Chloride IVPB Infused Q6HR [facility] Infusion Ibuprofen 800 mg in 200 mls @ 400 mls/hr 07/26/25 21:34 Caldolor 800 Mg/200 Ml IVPB Q6H PRN Breakthrough Pain Rated 1-3 or NPO Naloxone HCl 0.1 mg 07/26/25 21:34 Naloxone Hcl 0.4 Mg/Ml Vial IV PUSH Q2M PRN Opiate Reversal Ondansetron HCl 4 mg 07/24/25 23:06 07/27/25 09:52 Ondansetron Inj 4 Mg/2 Ml Vial IV PUSH 4 mg Q4H PRN Administration Nausea Oxycodone HCl 5 mg 07/26/25 21:34 Oxycodone Hcl (*Crx) 5 Mg Tab Ir PO Q4H PRN Pain Rated 4-6 Oxycodone HCl 10 mg 07/26/25 21:34 07/27/25 07:57 Oxycodone Hcl (*Crx) 5 Mg Tab Ir PO 10 mg Q4H PRN Administration Pain Rated 7-10 Polyethylene Glycol 17 gm 07/27/25 18:00 Polyethylene Glycol 3350 17 Gm Powd.Pack PO BID [facility] Radiology Results: ITS Impressions Abdomen/Pelvis CT 07/24/25 21:42 IMPRESSION: 1. Definitely distended gallbladder. No calcified stones. Mildly dilated intrahepatic and extrahepatic bile ducts. Please correlate with clinical findings and lab results including liver function. Additional evaluation of the gallbladder with ultrasound and or hepatobiliary nuclear scan is suggested. 2. Fecal impaction of proximal colon. 3 tiny nonobstructing left renal calculus. Abdomen Ultrasound 07/25/25 07:45 IMPRESSION: 1. Worrisome for acute cholecystitis. If clinical ambiguity, consider HIDA scan. Cholangiogram,Operative 07/26/25 20:43 IMPRESSION: 1. Findings suggestive of choledocholithiasis causing obstruction of distal bile duct. Findings were conveyed to the surgeon by telephone call. Labs Labs: Laboratory Results - last 24 hr 07/27/25 05:33 WBC 24.4 H RBC 4.43 Hgb 14.1 Hct 42.6 MCV 96.2 MCH 31.8 MCHC 33.1 RDW 14.3 Plt Count 262 MPV 9.9 Sodium 135 L Potassium 3.9 Chloride 102 Carbon Dioxide 27 Anion Gap 6 BUN 14 D Creatinine 0.72 Estim Creat Clear Calc Not Reportable Estimated GFR > 60 Glucose 145 H Calcium 9.3 Total Bilirubin 4.6 H AST 178 H ALT 568 H Alkaline Phosphatase 273 H Total Protein 7.3 Albumin 3.6
--- NOTE | 2025-07-27 15:02 | P.PNAN_ITS ---
Anes - Eval Final PreProcedure Day of Procedure 07/27/25 15:02 Patient weight: obese Heart: regular rate and rhythm Lungs: clear to auscultation Airway: Mallampati scale class II Neurological: alert and oriented Last oral intake: >/= 8 hours ASA classification: III Emergent: no Anesthetic plan: proceed Anesthesia type and monitoring: general ETT and standard monitoring Results Review: All pre-operative results and documents have been reviewed as part of the pre- operative evaluation. Informed Consent: The patient's anesthetic plan and its attendant risks and benefits were discussed with the patient/family/POA. Questions were solicited and answers provided to the satisfaction of the patient/family/POA.
[2025-07-27] MEDS: LACTATED RINGERS 1,000 ML 150 ML IV CONT (15:06)
[2025-07-27] MEDS: INDOMETHACIN 50 MG SUPP.RECT 100 MG RECTAL (15:42)
[2025-07-28] MEDS: PIPERACILLIN/TAZOBACTAM SOD 3.375 GM in SODIUM CHLORIDE 0.9% IV 50 ML 100 ML IVPB ×2 (00:05→05:45)
[2025-07-28] MEDS: LACTATED RINGERS 1,000 ML 100 ML IV CONT (00:07)
[2025-07-28] MEDS: oxyCODONE HCL (*CRX) 5 MG TAB IR 10 MG PO (00:37)
[2025-07-28 04:52] VITALS: BP 144/86; PULSE 73; RESP 18; TEMP 36.7; O2SAT 95
[2025-07-28 05:52] LABS: Hematocrit 37.4 % (37.0-47.0); Hemoglobin 12.1 g/dL (12.0-15.0); Mean Corpuscular HGB Conc 32.4 g/dl (32-36); Mean Corpuscular Hemoglobin 31.3 pg (26-34); Mean Corpuscular Volume 96.6 fl (80-100); Platelet Count Result 271 k/mm3 (150-375); Red Blood Count 3.87 M/mm3 (4.2-5.4); White Blood Count 17.5 K/mm3 (4.5-10.0)
[2025-07-28 06:10] LABS: Alanine Aminotransferase 356 U/L (6-35); Albumin Level 3.2 g/dL (3.5-5.1); Alkaline Phosphatase 230 U/L (38-126); Anion Gap 2 mmol/L (4-12); Aspartate Amino Transferase 76 U/L (14-36); Bilirubin,Total 1.6 mg/dL (0.2-1.3); Blood Urea Nitrogen 14 mg/dL (7-17); Calcium 8.6 mg/dL (8.4-10.2); Carbon Dioxide 30 mmol/L (22-30); Chloride 104 mmol/L (98-107); Estimated CRCL calculation 87 ml/min; Estimated Glomerular Filt Rate > 60; Glucose 105 mg/dL (65-110); Potassium 3.7 mmol/L (3.4-5.0); Sodium 136 mmol/L (137-145); Total Protein 6.5 g/dL (6.3-8.2)
--- NOTE | 2025-07-28 07:05 | WPDGIPROGNO ---
Progress Note: A&P Assessment and Plan (1) Choledocholithiasis: Code(s): K80.50 - Calculus of bile duct without cholangitis or cholecystitis without obstruction Status: Acute Assessment and Plan: The patient underwent ERCP yesterday, with successful extraction of multiple small stones. Her biochemistry demonstrates resolution and clearance of the common bile duct. She could be discharged today from our standpoint, pending visit by the surgical team. (2) Elevated LFTs: Code(s): R79.89 - Other specified abnormal findings of blood chemistry Status: Acute Subjective Date/time seen: 07/28/25 07:05 Interval history: The patient feels well, no fever, no abdominal pain. Labs today: WBC 17.5, AST 76, ALT 356, alk-phos 230, bilirubin 1.6. Review of Systems Review of Systems: All systems reviewed & are unremarkable except as noted in HPI and below Exam Const: General: comfortable and no acute distress Eyes: Sclera: sclerae normal Resp: Effort & Inspection: normal respiratory effort Cardio: Rate: regular rate Rhythm: regular rhythm GI: GI Palp: Yes Soft to palpation, No Tenderness to palpation present (GI) and No Guarding due to palpation present (GI) Auscultation: normal bowel sounds Objective Data Vital Signs Vital Signs: Vital Signs - 24 hr 07/27/25 07:19 07/27/25 08:00 07/27/25 11:19 Temperature Pulse Rate 79 66 Respiratory Rate 16 Blood Pressure 131/69 145/66 H Pulse Oximetry 97 95 Oxygen Delivery Room Air Oxygen Flow Rate 07/27/25 15:04 07/27/25 16:32 07/27/25 16:42 Temperature 97.5 F L 97.2 F L Pulse Rate 66 92 82 Respiratory Rate 16 17 24 H Blood Pressure 163/76 H 128/62 124/66 Pulse Oximetry 93 98 100 Oxygen Delivery Room Air Simple Face Mask Simple Face Mask Oxygen Flow Rate 10 8 07/27/25 16:52 07/27/25 17:02 07/27/25 17:12 Temperature Pulse Rate 84 67 69 Respiratory Rate 21 H 15 14 Blood Pressure 127/65 130/71 129/65 Pulse Oximetry 100 96 92 Oxygen Delivery Simple Face Mask Room Air Room Air Oxygen Flow Rate 3 07/27/25 17:22 07/27/25 17:56 07/27/25 19:19 Temperature 97.6 F 98.2 F Pulse Rate 68 67 69 Respiratory Rate 14 18 18 Blood Pressure 125/71 140/78 141/73 H Pulse Oximetry 92 92 97 Oxygen Delivery Room Air Oxygen Flow Rate 07/27/25 20:00 07/27/25 23:19 07/28/25 04:52 Temperature 98.1 F 98.1 F Pulse Rate 65 73 Respiratory Rate 16 18 Blood Pressure 129/70 144/86 H Pulse Oximetry 94 95 Oxygen Delivery Room Air Oxygen Flow Rate Intake/Output Intake/Output: Intake & Output 07/25/25 07/26/25 07/27/25 07/28/25 23:59 23:59 23:59 23:59 Intake Total 1400 2774.3 2750 850 Output Total 3 Balance 1400 2774.3 2750 847 Meds/Results Medications: Active Medications Generic Name Dose Route Start Last Admin Trade Name Freq PRN Reason Stop Dose Admin Diphenhydramine HCl 25 mg 07/26/25 21:34 Diphenhydramine Hcl Inj 50 Mg/Ml Vial IV PUSH Q6H PRN Itching Hydromorphone HCl 1 mg 07/26/25 21:34 07/27/25 22:10 Hydromorphone Hcl Inj (*Crx) 1 Mg/Ml Syr IV PUSH 1 mg Q2H PRN Administration Breakthrough Pain Rated 7-10 or NPO Hydromorphone HCl 0.5 mg 07/26/25 21:34 Hydromorphone Hcl Inj (*Crx) 1 Mg/Ml Syr IV PUSH Q2H PRN Breakthrough Pain Rated 4-6 or NPO Lactated Ringer's 1,000 mls @ 100 mls/hr 07/25/25 19:15 07/28/25 00:07 Lr - Lactated Ringers Iv IV CONT 100 mls/hr .Q10H [facility] Administration Piperacillin Sod/Tazobactam 50 mls @ 100 mls/hr 07/25/25 19:15 07/28/25 06:15 Sod 3.375 gm/ Sodium Chloride IVPB Infused Q6HR [facility] Infusion Ibuprofen 800 mg in 200 mls @ 400 mls/hr 07/26/25 21:34 Caldolor 800 Mg/200 Ml IVPB Q6H PRN Breakthrough Pain Rated 1-3 or NPO Naloxone HCl 0.1 mg 07/26/25 21:34 Naloxone Hcl 0.4 Mg/Ml Vial IV PUSH Q2M PRN Opiate Reversal Ondansetron HCl 4 mg 07/24/25 23:06 07/27/25 09:52 Ondansetron Inj 4 Mg/2 Ml Vial IV PUSH 4 mg Q4H PRN Administration Nausea Oxycodone HCl 5 mg 07/26/25 21:34 Oxycodone Hcl (*Crx) 5 Mg Tab Ir PO Q4H PRN Pain Rated 4-6 Oxycodone HCl 10 mg 07/26/25 21:34 07/28/25 00:37 Oxycodone Hcl (*Crx) 5 Mg Tab Ir PO 10 mg Q4H PRN Administration Pain Rated 7-10 Polyethylene Glycol 17 gm 07/27/25 18:00 07/27/25 17:53 Polyethylene Glycol 3350 17 Gm Powd.Pack PO 17 gm BID [facility] Administration Radiology Results: ITS Impressions Abdomen/Pelvis CT 07/24/25 21:42 IMPRESSION: 1. Definitely distended gallbladder. No calcified stones. Mildly dilated intrahepatic and extrahepatic bile ducts. Please correlate with clinical findings and lab results including liver function. Additional evaluation of the gallbladder with ultrasound and or hepatobiliary nuclear scan is suggested. 2. Fecal impaction of proximal colon. 3 tiny nonobstructing left renal calculus. Abdomen Ultrasound 07/25/25 07:45 IMPRESSION: 1. Worrisome for acute cholecystitis. If clinical ambiguity, consider HIDA scan. Cholangiogram,Operative 07/26/25 20:43 IMPRESSION: 1. Findings suggestive of choledocholithiasis causing obstruction of distal bile duct. Findings were conveyed to the surgeon by telephone call. Endo Retro Cholangiopancreatogram 07/27/25 16:36 IMPRESSION: ERCP fluoroscopic images. No radiologist present. See operative/procedure report for complete details. Labs Labs: Laboratory Results - last 24 hr 07/28/25 05:44 WBC 17.5 H RBC 3.87 L Hgb 12.1 Hct 37.4 MCV 96.6 MCH 31.3 MCHC 32.4 RDW 14.5 Plt Count 271 MPV 10.0 Sodium 136 L Potassium 3.7 Chloride 104 Carbon Dioxide 30 Anion Gap 2 L BUN 14 Creatinine 0.70 Estim Creat Clear Calc 87 Estimated GFR > 60 Glucose 105 Calcium 8.6 Total Bilirubin 1.6 H AST 76 H ALT 356 H Alkaline Phosphatase 230 H Total Protein 6.5 Albumin 3.2 L
--- NOTE | 2025-07-28 08:33 | PC.NURSE ---
RN called provider Ramila to make sure it was ok to not have IV access.
[2025-07-28] MEDS: oxyCODONE HCL (*CRX) 5 MG TAB IR PO ×2 (08:47→12:24)
--- NOTE | 2025-07-28 12:36 | P.PNGS_ITS ---
Progress Note: A&P Assessment and Plan (1) Acute calculous cholecystitis: Code(s): K80.00 - Calculus of gallbladder with acute cholecystitis without obstruction Status: Acute Assessment and Plan: * Doing well on postop day 2. Okay to discharge home from surgical standpoint. * Postoperative instructions discussed with patient. Follow-up in office in 2 weeks. * Will send home on 1 week of antibiotics and pain meds. (2) Choledocholithiasis: Code(s): K80.50 - Calculus of bile duct without cholangitis or cholecystitis without obstruction Status: Acute Assessment and Plan: * Liver enzymes trending down since ERCP yesterday Subjective Subjective Date/Time Seen: 07/28/25 12:36 Interval history: Patient still having a little bit of right upper quadrant pain but overall feeling better. Tolerating diet. No fevers. Exam GI: Inspection: non-distended and incision (Intact with glue) GI Palp: Yes Soft to palpation, Yes Tenderness to palpation present (GI) (Incisional and right upper quadrant), No Guarding due to palpation present (GI) and No Rebound tenderness present Auscultation: normal bowel sounds Objective Data Vital Signs Vital Signs: Vital Signs - 24 hr 07/27/25 15:04 07/27/25 16:32 07/27/25 16:42 Temperature 97.5 F L 97.2 F L Pulse Rate 66 92 82 Respiratory Rate 16 17 24 H Blood Pressure 163/76 H 128/62 124/66 Pulse Oximetry 93 98 100 Oxygen Delivery Room Air Simple Face Mask Simple Face Mask Oxygen Flow Rate 10 8 07/27/25 16:52 07/27/25 17:02 07/27/25 17:12 Temperature Pulse Rate 84 67 69 Respiratory Rate 21 H 15 14 Blood Pressure 127/65 130/71 129/65 Pulse Oximetry 100 96 92 Oxygen Delivery Simple Face Mask Room Air Room Air Oxygen Flow Rate 3 07/27/25 17:22 07/27/25 17:56 07/27/25 19:19 Temperature 97.6 F 98.2 F Pulse Rate 68 67 69 Respiratory Rate 14 18 18 Blood Pressure 125/71 140/78 141/73 H Pulse Oximetry 92 92 97 Oxygen Delivery Room Air Oxygen Flow Rate 07/27/25 20:00 07/27/25 23:19 07/28/25 04:52 Temperature 98.1 F 98.1 F Pulse Rate 65 73 Respiratory Rate 16 18 Blood Pressure 129/70 144/86 H Pulse Oximetry 94 95 Oxygen Delivery Room Air Oxygen Flow Rate 07/28/25 08:56 Temperature Pulse Rate Respiratory Rate Blood Pressure Pulse Oximetry Oxygen Delivery Room Air Oxygen Flow Rate Intake/Output Intake/Output: Intake & Output 07/25/25 07/26/25 07/27/25 07/28/25 23:59 23:59 23:59 23:59 Intake Total 1400 2774.3 2750 1000 Output Total 3 Balance 1400 2774.3 2750 997 Meds/Results Medications: Active Medications Generic Name Dose Route Start Last Admin Trade Name Freq PRN Reason Stop Dose Admin Diphenhydramine HCl 25 mg 07/26/25 21:34 Diphenhydramine Hcl Inj 50 Mg/Ml Vial IV PUSH Q6H PRN Itching Hydromorphone HCl 1 mg 07/26/25 21:34 07/27/25 22:10 Hydromorphone Hcl Inj (*Crx) 1 Mg/Ml Syr IV PUSH 1 mg Q2H PRN Administration Breakthrough Pain Rated 7-10 or NPO Hydromorphone HCl 0.5 mg 07/26/25 21:34 Hydromorphone Hcl Inj (*Crx) 1 Mg/Ml Syr IV PUSH Q2H PRN Breakthrough Pain Rated 4-6 or NPO Lactated Ringer's 1,000 mls @ 100 mls/hr 07/25/25 19:15 07/28/25 00:07 Lr - Lactated Ringers Iv IV CONT 100 mls/hr On Hold: 07/28/25 08:48 .Q10H AM[facility] Administration Piperacillin Sod/Tazobactam 50 mls @ 100 mls/hr 07/25/25 19:15 07/28/25 06:15 Sod 3.375 gm/ Sodium Chloride IVPB Infused Q6HR [facility] Infusion Ibuprofen 800 mg in 200 mls @ 400 mls/hr 07/26/25 21:34 Caldolor 800 Mg/200 Ml IVPB Q6H PRN Breakthrough Pain Rated 1-3 or NPO Naloxone HCl 0.1 mg 07/26/25 21:34 Naloxone Hcl 0.4 Mg/Ml Vial IV PUSH Q2M PRN Opiate Reversal Ondansetron HCl 4 mg 07/24/25 23:06 07/27/25 09:52 Ondansetron Inj 4 Mg/2 Ml Vial IV PUSH 4 mg Q4H PRN Administration Nausea Oxycodone HCl 5 mg 07/26/25 21:34 07/28/25 12:24 Oxycodone Hcl (*Crx) 5 Mg Tab Ir PO 5 mg Q4H PRN Administration Pain Rated 4-6 Oxycodone HCl 10 mg 07/26/25 21:34 07/28/25 00:37 Oxycodone Hcl (*Crx) 5 Mg Tab Ir PO 10 mg Q4H PRN Administration Pain Rated 7-10 Polyethylene Glycol 17 gm 07/27/25 18:00 07/28/25 08:47 Polyethylene Glycol 3350 17 Gm Powd.Pack PO 17 gm BID [facility] Administration Radiology Results: ITS Impressions Abdomen/Pelvis CT 07/24/25 21:42 IMPRESSION: 1. Definitely distended gallbladder. No calcified stones. Mildly dilated intrahepatic and extrahepatic bile ducts. Please correlate with clinical findings and lab results including liver function. Additional evaluation of the gallbladder with ultrasound and or hepatobiliary nuclear scan is suggested. 2. Fecal impaction of proximal colon. 3 tiny nonobstructing left renal calculus. Abdomen Ultrasound 07/25/25 07:45 IMPRESSION: 1. Worrisome for acute cholecystitis. If clinical ambiguity, consider HIDA scan. Cholangiogram,Operative 07/26/25 20:43 IMPRESSION: 1. Findings suggestive of choledocholithiasis causing obstruction of distal bile duct. Findings were conveyed to the surgeon by telephone call. Endo Retro Cholangiopancreatogram 07/27/25 16:36 IMPRESSION: ERCP fluoroscopic images. No radiologist present. See operative/procedure report for complete details. Labs Labs: Laboratory Results - last 24 hr 07/28/25 05:44 WBC 17.5 H RBC 3.87 L Hgb 12.1 Hct 37.4 MCV 96.6 MCH 31.3 MCHC 32.4 RDW 14.5 Plt Count 271 MPV 10.0 Sodium 136 L Potassium 3.7 Chloride 104 Carbon Dioxide 30 Anion Gap 2 L BUN 14 Creatinine 0.70 Estim Creat Clear Calc 87 Estimated GFR > 60 Glucose 105 Calcium 8.6 Total Bilirubin 1.6 H AST 76 H ALT 356 H Alkaline Phosphatase 230 H Total Protein 6.5 Albumin 3.2 L
--- NOTE | 2025-07-28 12:50 | PM.DS ---
DS: Summary Time Spent with Patient Time attestation: Total time spent providing and/or coordinating discharge services: DS: Data Data Completed and Pending Pending studies at discharge: Pending at discharge 07/26/25 20:14 Surgical [PTH] Routine Labs on day of discharge: Labs from last 24 hours 07/28/25 05:44 WBC 17.5 H RBC 3.87 L Hgb 12.1 Hct 37.4 MCV 96.6 MCH 31.3 MCHC 32.4 RDW 14.5 Plt Count 271 MPV 10.0 Sodium 136 L Potassium 3.7 Chloride 104 Carbon Dioxide 30 Anion Gap 2 L BUN 14 Creatinine 0.70 Estim Creat Clear Calc 87 Estimated GFR > 60 Glucose 105 Calcium 8.6 Total Bilirubin 1.6 H AST 76 H ALT 356 H Alkaline Phosphatase 230 H Total Protein 6.5 Albumin 3.2 L Discharge Plan Discharge Attending physician on discharge: Aniket Cabrera Consulting providers: Zach Nunez Discharging Clinician: Valerie Winn Patient Disposition: Home Activity: other - see discharge instructions Diet: low fat Wound Care Instructions: other - see discharge instructions Discharge Instructions: DISCHARGE INSTRUCTION SHEET FOR HERNIA, GALLBLADDER AND APPENDIX SURGERIES DR. NUNEZ PATIENT TO TAKE HOME 1. May shower, no soaking in bath x 2weeks. 2. Call office for: Wound increasingly painful or bleeding Vomiting Fever of greater than 101 degrees 3. If no bowel movement for three days, take 1 oz. (30 ml) Milk of Magnesia or MiraLax 17g 1 to 2 times daily. 4. No heavy lifting > 10-15 pounds x weeks for hernia repairs and 2 weeks for laparoscopic cholecystectomy or appendectomy. 5. No driving for 3 days or while taking narcotic pain medications. 6. Ice to surgical site for 48 hours (30 min on, then 30 min off). 7. Up walking 10-30 minutes three times per day. 8. Resume previous home medications. 9. Follow-up 10-14 days in office for wound check or as previously scheduled. ([id number]) 10. Oral pain medications prescription to be sent to pharmacy. Take Tylenol 500mg every 6 hours and Ibuprofen 600mg every 6 hours for the first 2 days, then as needed. 11. NUTRITION: Start out by drinking fluids and increase your diet as tolerated. If you experience nausea, try dry toast, crackers, and 7-UP. If nausea or vomiting persists, contact your surgeon?s office. 12. Gallbladders-Low Fat Diet for 2 weeks (send care note of low fat diet) 13. Inguinal Hernias-wear scrotal support for 48 hours 14. Abdominal Hernias-if sent home with abdominal binder, wear for the first 2 weeks (may remove to shower or at night to sleep). Revised December 2018 Patient Instructions: Antibiotic Form, Low Fat Diet (DC) Patient Language: Kazakh Stand Alone Forms: General Discharge Information Follow-up/Referrals: Mukesh Dooley MD [Primary Care Provider, [facility]] Referral Note: call for an appointment to be seen 1-2 weeks after surgery. Ask your PCP to check your liver enzymes and white blood cell count (CMP and CBC) one week after discharge. Zach Nunez DO [Physician, General Surgery] - 2 Weeks Discharge Medications: New oxycodone-acetaminophen [Endocet] 5-325 mg tablet 1 - 2 tablet PO Q4H PRN (Reason: pain) Qty: 15 0RF amoxicillin-pot clavulanate 875-125 mg tablet 1 tablet PO Q12H 7 Days Qty: 14 0RF metronidazole 500 mg tablet 500 mg PO Q8H 7 Days Qty: 21 0RF Continued estradiol 2 mg tablet 2 mg PO DAILY Qty: 90 3RF sertraline 100 mg tablet 100 mg PO DAILY Qty: 90 3RF famotidine 20 mg tablet 20 mg PO HS PRN (Reason: indigestion) cyclobenzaprine 5 mg tablet 5 mg PO HS PRN (Reason: muscle spasm) acetaminophen [Tylenol Extra Strength] 500 mg tablet 1,000 mg PO Q6H PRN (Reason: pain) Qty: 50 0RF Discontinued oxycodone 5 mg tablet 5 mg PO HS PRN (Reason: pain) Date of admission: 07/26/25 09:12 Primary Care Provider: Mukesh Dooley Admitting Provider: Alba Valdez Attending physician on admission: Alba Valdez Condition: Stable
== END 2025-07-28 13:25 | disposition home or self-care (01) | DRG 419 ==
LOC: ANHED 22:36 → ANH3MEDSUR 07-25 01:43 → ANH3MED 07-25 11:51 → ANH3MEDSUR 07-25 11:51
PROVIDERS: Internal Medicine Gastroenterology; Surgery; Admitting Provider Internal Medicine; PCP Family Medicine; Visit Provider Nurse Practitioner Adult Health
PROC: 0FT44ZZ Resection of Gallbladder, Percutaneous Endoscopic Approach (ICD-10-PCS; CPT 47562; principal; 2025-07-26 16:30)
PROC: 0FC98ZZ Extirpation of Matter from Common Bile Duct, Via Natural or Artificial Opening Endoscopic (ICD-10-PCS; CPT 43260; principal; 2025-07-27 15:00)
DX: K80.40 Calculus of bile duct with cholecystitis, unspecified, without obstruction (principal); K56.41 Fecal impaction; E66.9 Obesity, unspecified; E78.2 Mixed hyperlipidemia; E80.6 Other disorders of bilirubin metabolism; Z68.34 Body mass index [BMI] 34.0-34.9, adult
CPT/HCPCS: 36415; 74177; 74300; 74329; 76705; 80053; 81003; 83690; 85025; 85027; 85610; 85730; 86850; 86900; 86901; 88304; 96361; 96374; 96375; 99285; A9270; G0378; J1100; J1171; J1885; J2003; J2250; J2405; J2543; J2704; J3010; J7030; J7120; Q9966; Q9967